=== PATIENT | female | born 1955 | race Caucasian/White ===

== ENCOUNTER → 2017-06-23 | Outpatient (CLI) | payer BC ==
--- NOTE | 2017-06-23 12:25 | ECHOS ---
STRESS ECHOCARDIOGRAM INDICATIONS: Family history/palpitations. MEDICATIONS: Niacin, pravastatin, Xanax, Tramadol. BASELINE HEART RATE: 95 BASELINE BLOOD PRESSURE: 123/61 MAXIMUM HEART RATE: 144 MAXIMUM BLOOD PRESSURE: 199/96 85% MPHR: 134 100% MPHR: 158 METS: 6.0 MAXIMUM STAGE REACHED: 2 TOTAL EXERCISE TIME: 4:15 CLINICAL INFORMATION: Patient referred for a dobutamine stress echo. History of palpitations and a family history of heart disease. Baseline heart rate 95 beats per minute. Baseline blood pressure 123/61 mmHg. Baseline 12-lead ECG showed normal sinus rhythm with normal cardiac intervals. Patient exercised on a Enrrique protocol for 4 minutes 15 seconds achieving a peak heart rate of 144 beats per minute. There was no ECG evidence for ischemia. PVCs and ventricular couplets and ventricular triplets were noted. These PVCs had a left bundle branch block morphology. There was no ECG evidence for ischemia. No sustained VT was noted. Baseline 2D echo images showed normal LV size and systolic function without segmental wall motion abnormalities. At peak exercise, there was excellent augmentation of overall LV contractility without development of any wall motion abnormalities. At recovery regional global LV systolic function remained normal. IMPRESSION: 1. Low average exercise capacity. 2. Normal blood pressure response to exercise. 3. No ECG or echocardiographic evidence for ischemia. 4. PVCs and ventricular couplets noted with exercise. No nonsustained ventricular tachycardia. MMODL / IJN: [id number] /
== END | disposition home or self-care (01) ==
LOC: RADNMMAIN 09:19
PROVIDERS: ATTEND Family Medicine
DX: I49.3 Ventricular premature depolarization (principal); I10 Essential (primary) hypertension; E66.09 Other obesity due to excess calories; Z82.41 Family history of sudden cardiac death
CPT/HCPCS: 93017; 93350

== ENCOUNTER 2017-07-06 11:03 | Day surgery (SDC) | payer BC ==
[2017-07-04 15:14] VITALS: BMI 36.0
[~2017-07-06 11:03] MED LIST: LACTATED RINGERS 1,000 ML IV SCH; LIDOCAINE 1% 20 ML VIAL (10MG/ML) FOR IV START INTRADERMA PRN
[2017-07-06 12:29] VITALS: TEMP 99
[2017-07-06] MEDS ORDERED: PROPOFOL 10 MG/ML 20 ML VIAL IV ONE (12:29)
--- NOTE | 2017-07-06 12:43 | P.PCN ---
Date of Procedure: 07/06/17 Procedure(s) Performed: BRIEF HISTORY: Patient is a 61-year-old pleasant, white female, scheduled for an elective colonoscopy as a part of screening for colorectal neoplasia. PROCEDURE PERFORMED: Colonoscopy with snare polypectomy. PREOPERATIVE DIAGNOSIS: Screening For colon cancer. IV sedation per Anesthesia. PROCEDURE: After informed consent was obtained, the patient, was brought into the endoscopy unit. IV sedation was administered by Anesthesia under continuous monitoring. Digital rectal examination was normal. Initially the Olympus CF- 160 flexible video colonoscope was then inserted in the rectum, gradually advanced into the cecum without any difficulty. Careful examination was performed as the scope was gradually being withdrawn. Ileocecal valve and the appendiceal orifice were visualized and appeared normal. Prep was excellent. Mucosa of the cecum, ascending colon, transverse colon, descending colon, sigmoid colon, and rectum appeared normal. In the proximal rectum there was a 7 -8 mm polyp that was removed by snare polypectomy. Retroflexion was performed in the rectum and no lesions were seen. The sigmoid diverticula seen. The patient tolerated the procedure well. IMPRESSION: 7-8 mm proximal rectal polyp status post polypectomy Scattered sigmoid diverticulosis RECOMMENDATIONS: Findings of this examination were discussed with the patient well as her family. She was advised to follow with the biopsy results. If the biopsy shows a tubular adenoma she can have a repeat colonoscopy in 5 years.
[2017-07-06 12:55] VITALS: RESP 18
[2017-07-06 13:09] VITALS: BP 136/87; PULSE 69
== END 2017-07-06 13:26 | disposition home or self-care (01) ==
LOC: ORWHC2ENDO 11:03
PROVIDERS: ATTEND Internal Medicine Gastroenterology
DX: Z12.11 Encounter for screening for malignant neoplasm of colon (principal); K62.1 Rectal polyp; K57.30 Diverticulosis of large intestine without perforation or abscess without bleeding; K21.9 Gastro-esophageal reflux disease without esophagitis; E78.5 Hyperlipidemia, unspecified; Z79.891 Long term (current) use of opiate analgesic; Z79.899 Other long term (current) drug therapy
CPT/HCPCS: 88305; 45385; J2704

== ENCOUNTER 2018-07-19 19:50 | Observation (INO) | payer BC ==
--- NOTE | 2018-07-19 20:26 | ED ---
Chest Pain HPI - General Chief Complaint: Chest Pain Stated Complaint: Chest Pressure Time Seen by Provider: 07/19/18 19:59 Source: patient, RN notes reviewed, old records reviewed Mode of arrival: ambulatory Limitations: no limitations - History of Present Illness Initial Comments: This is a 61-year-old female the ER for evasive chest pain. Patient is chest pain palpitations and chest pressure left-sided. No significant shortness of breath, she does have history of similar complaints. Patient was sent by family doctor for evaluation regarding chest pain. No prior cardiac evaluation recently. No travel history no sick contacts no fever cough or congestion. Patient's chest pain remains currently, no diaphoresis. MD Complaint: chest pain -: hour(s) Onset: during rest Pain Location: substernal, left chest Pain Radiation: none Severity: moderate Severity scale (1-10): 4 Quality: tightness, heaviness Consistency: constant Improves With: nothing Worsens With: nothing Anginal Symptoms: other (None) Other Symptoms: palpitations Treatments Prior to Arrival: none - Related Data Home Medications Medication Instructions Recorded Confirmed ALPRAZolam [Xanax] 0.5 mg PO DAILY PRN 07/04/17 07/19/18 Diclofenac Potassium [Cataflam] 50 mg PO DAILY PRN 07/04/17 07/19/18 Fish Oil/Dha/Epa [Fish Oil 1,200 1 cap PO DAILY 07/04/17 07/19/18 mg Fish Oil] Multivitamins, Thera [Multivitamin 1 tab PO DAILY 07/04/17 07/19/18 (formulary)] traMADol HCL [Ultram] 50 mg PO DAILY PRN 07/04/17 07/19/18 Atorvastatin [Lipitor] 40 mg PO DAILY 07/19/18 07/19/18 Calcium Carbonate [Calcium] 600 mg PO DAILY 07/19/18 07/19/18 Glucosam/Duane-Msm1/C/Hitesh/Bosw 1 tab PO DAILY 07/19/18 07/19/18 [Glucosamine-Chondroitin Tablet] Vitamin D3(Unknown) 1 tab PO DAILY 07/19/18 07/19/18 buPROPion XL [Wellbutrin Xl] 150 mg PO DAILY 07/19/18 07/19/18 Allergies Allergy/AdvReac Type Severity Reaction Status Date / Time No Known Allergies Allergy Verified 07/19/18 20:24 Review of Systems ROS Statement: Those systems with pertinent positive or pertinent negative responses have been documented in the HPI. ROS Other: All systems not noted in ROS Statement are negative. EKG Findings - EKG Comments: EKG Findings:: EKG shows normal sinus rhythm rate of 90, IL 180, QRS 80, QTC 452 Past Medical History Additional Past Medical History / Comment(s): palpatations occas,chest pain with stress,steroid Apr 2017 History of Any Multi-Drug Resistant Organisms: None Reported Past Surgical History: Joint Replacement Additional Past Surgical History / Comment(s): lap band-fluid present,kayley hips replacements,rt knee replaced Past Anesthesia/Blood Transfusion Reactions: No Reported Reaction Past Psychological History: Depression Smoking Status: Former smoker Past Alcohol Use History: Occasional Past Drug Use History: None Reported - Past Family History Father Family Medical History: Myocardial Infarction ([place]) Additional Family Medical History / Comment(s): at age 44 Mother Family Medical History: Cancer Additional Family Medical History / Comment(s): lung General Exam Limitations: no limitations General appearance: alert, in no apparent distress Head exam: Present: atraumatic, normocephalic, normal inspection Eye exam: Present: normal appearance, PERRL, EOMI. Absent: scleral icterus, conjunctival injection, periorbital swelling ENT exam: Present: normal exam, mucous membranes moist Neck exam: Present: normal inspection. Absent: tenderness, meningismus, lymphadenopathy Respiratory exam: Present: normal lung sounds bilaterally. Absent: respiratory distress, wheezes, rales, rhonchi, stridor Cardiovascular Exam: Present: regular rate, normal rhythm, normal heart sounds. Absent: systolic murmur, diastolic murmur, rubs, gallop, clicks GI/Abdominal exam: Present: soft, normal bowel sounds. Absent: distended, tenderness, guarding, rebound, rigid Extremities exam: Present: normal inspection, full ROM, normal capillary refill. Absent: tenderness, pedal edema, joint swelling, calf tenderness Back exam: Present: normal inspection Neurological exam: Present: alert, oriented X3, CN II-XII intact Psychiatric exam: Present: normal affect, normal mood Skin exam: Present: warm, dry, intact, normal color. Absent: rash Course Vital Signs 07/19/18 07/19/18 19:52 21:52 Temperature 98.2 F Pulse Rate 96 83 Respiratory 18 18 Rate Blood Pressure 158/86 144/84 O2 Sat by Pulse 99 97 Oximetry - Reevaluation(s) Reevaluation #1: 07/19/18 21:57 Medical record reviewed Reevaluation #2: 07/19/18 21:57 Patient with persistent chest pain Chest Pain MDM - [facility] 62 female who presents with chest pain. Persistent chest pain here in the ER CT chest is negative for acute disease. Patient be admitted for surgical troponins and cardiac observation Critical Care Time Critical Care Time: Yes Total Critical Care Time: 31 Disposition Clinical Impression: Chest pain Disposition: ADMITTED IP TO THIS HOSP Condition: Undetermined Instructions (If sedation given, give patient instructions): Chest Pain (ED) Is patient prescribed a controlled substance at d/c from ED?: No Referrals: Madonna Woodard MD [Primary Care Provider] - 1-2 days
[2018-07-19 20:37] LABS: Basophils % (A) 1 %; Eosinophils # (A) 0.1 k/uL (0-0.7); Eosinophils % (A) 2 %; HGB 13.3 gm/dL (11.4-16.0); Lymphocytes # (A) 1.1 k/uL (1.0-4.8); Lymphocytes % (A) 18 %; MCH 32.9 pg (25.0-35.0); MCHC 33.4 g/dL (31.0-37.0); MCV 98.6 fL (80.0-100.0); Mean Platelet Volume 7.3; Monocytes # (A) 0.3 k/uL (0-1.0); Monocytes % (A) 5 %; Neutrophils # (A) 4.5 k/uL (1.3-7.7); Neutrophils % (A) 73 %; Platelet Count 227 k/uL (150-450); RBC 4.06 m/uL (3.80-5.40); WBC 6.2 k/uL (3.8-10.6)
--- NOTE | 2018-07-19 20:44 | XR ---
EXAMINATION: XR chest 2V DATE AND TIME: 07/19/2018 8:37 PM CLINICAL INDICATION: PHH; Chest Pain TECHNIQUE: Departmental protocol COMPARISON: 07/19/2011 FINDINGS: The lungs are clear. The pleural spaces are negative. The cardiac silhouette is not enlarged. The remainder of the mediastinal silhouette is unremarkable. The skeletal structures and soft tissues are negative for acute findings. IMPRESSION: NO ACUTE PROCESS.
[2018-07-19 20:47] LABS: ALT 25 U/L (9-52); AST 22 U/L (14-36); Albumin 4.4 g/dL (3.5-5.0); Alkaline Phosphatase 81 U/L (38-126); Anion Gap 10 mmol/L; Blood Urea Nitrogen 16 mg/dL (7-17); Carbon Dioxide 26 mmol/L (22-30); Chloride 106 mmol/L (98-107); Glucose 87 mg/dL (74-99); Lipase 49 U/L (23-300); Magnesium 1.6 mg/dL (1.6-2.3); Potassium 4.6 mmol/L (3.5-5.1); Sodium 142 mmol/L (137-145); Total Bilirubin 0.8 mg/dL (0.2-1.3); Total Protein 6.6 g/dL (6.3-8.2)
[2018-07-19 20:59] LABS: INR 0.9 (<1.2)
[2018-07-19 21:02] LABS: D-Dimer 1.9 mg/L FEU (<0.60); Partial Thromboplastin Time 21.5 sec (22.0-30.0)
--- NOTE | 2018-07-19 22:21 | CT ---
EXAMINATION TYPE: CT angio chest with contrast and with 3-D reconstruction renderings DATE OF EXAM: 07/19/2018 9:36 PM COMPARISON: 09/03/2011 HISTORY: Chest pressure, elevated d-dimer CT DLP: 481.2 mGycm Automated exposure control for dose reduction was used. CONTRAST: CTA scan of the thorax is performed with IV Contrast, patient injected with 100 mL of Isovu e 370, pulmonary embolism protocol. 3-D renderings. FINDINGS: LUNGS: The lungs are grossly clear, there is no concerning parenchymal mass or nodule identified. Th ere is no pleural effusion or pneumothorax seen. The tracheobronchial tree is patent. MEDIASTINUM: There is satisfactory enhancement of the pulmonary artery and its branches, there is no CT evidence for pulmonary embolism. No acute aortic findings. There are no greater than 1 cm hilar or mediastinal lymph nodes. There is mild cardiomegaly. Coronary calcifications are noted. No pericard ial effusion is seen. 5 cm sliding hiatal hernia noted. OTHER: No additional significant abnormality is seen. IMPRESSION: 1. NO ACUTE PROCESS. 2. CORONARY CALCIFICATIONS AND MILD CARDIOMEGALY. 3. 5 CM SLIDING HIATAL HERNIA.
[2018-07-19] MEDS ORDERED: NITROGLYCERIN SL TABS 0.4 MG TAB SUBLINGUAL PRN (22:35)
[2018-07-19] MEDS ORDERED: HEPARIN SODIUM,PORCINE 5,000 UNIT/ML 1 ML VIAL IV PRN (22:35)
[2018-07-19] MEDS ORDERED: HEPARIN SODIUM,PORCINE 5,000 UNIT/ML 1 ML VIAL IV ONE (22:35)
[2018-07-19] MEDS ORDERED: ASPIRIN 81 MG PO STA (22:35)
[2018-07-19] MEDS: SODIUM CHLORIDE 0.9% 1,000 ML IV SCH (23:07)
[2018-07-19] MEDS: HEPARIN SOD,PORK IN 0.45% NACL 25,000 UNIT in 0.45% NACL 1 250ML.BAG IV SCH (23:09)
[2018-07-20] MEDS: HEPARIN SOD,PORK IN 0.45% NACL 25,000 UNIT in 0.45% NACL 1 250ML.BAG IV SCH (05:48)
[2018-07-20] MEDS ORDERED: HEPARIN SODIUM,PORCINE 5,000 UNIT/ML 1 ML VIAL IV PRN ×2 (05:53→05:56)
[2018-07-20 08:50] LABS: Mean Platelet Volume 7.4; Platelet Count 178 k/uL (150-450)
[2018-07-20] MEDS ORDERED: METOPROLOL TARTRATE 25 MG TAB PO SCH (09:00)
[2018-07-20] MEDS ORDERED: ASPIRIN 325 MG TAB PO SCH (09:00)
[2018-07-20] MEDS: ATORVASTATIN 80 MG TAB PO SCH (09:08)
[2018-07-20 09:27] LABS: Cholesterol 152 mg/dL (<200); HDL Cholesterol 78 mg/dL (40-60); LDL Cholesterol,Calculated 58 mg/dL (0-99); Triglycerides 78 mg/dL (<150)
[2018-07-20] MEDS ORDERED: DOBUTamine DRIP for NUC MED 500 MG in DEXTROSE/WATER 1 250ML.BAG IV ONE (10:00)
[2018-07-20] MEDS ORDERED: traMADol 50 MG TAB PO PRN (10:08)
[2018-07-20] MEDS ORDERED: ALPRAZolam 0.5 MG TAB PO PRN (10:08)
[2018-07-20] MEDS ORDERED: ETODOLAC 200 MG CAPSULE PO PRN (10:08)
[2018-07-20] MEDS ORDERED: ATROPINE SULFATE 0.1 MG/ML 10ML SYRINGE ONE (10:27)
--- NOTE | 2018-07-20 12:16 | P.CRDCN ---
History of Present Illness History of present illness: This is a pleasant 62-year-old female past medical history significant for dyslipidemia, anxiety and gastroesophageal reflux disease. We have been asked to see her in consultation secondary to chest discomfort. She denies history of coronary artery disease, hypertension, diabetes mellitus and does not follow with a customer service and sales consultant for any reason. She is seen and examined resting comfortably on the stretcher in the emergency department. She states for the previous one month which has been experiencing intermittent pressure sensation in the left precordial region. These episodes of discomfort are not related to exertion. She states she does walk on her treadmill at home for approximately 20 minutes a few times a week and she does not experience this discomfort while she is exercising. In general she notices this discomfort at rest while she is sitting up. If she lays down completely flat or starts physically exerting herself the symptom symptoms seemed to subside. As I'm examining her she is having intermittent chest discomfort. There is no radiation to the arm, back, neck or jaw. She denies associated shortness of breath, dizziness, palpitations, nausea, vomiting or diaphoresis. She recently established with a new primary care physician and was changed from pravastatin to atorvastatin. She seems to think the symptoms are associated with this change in medication and occurred at the same time. EKG reveals sinus mechanism with no acute ST or T wave abnormalities noted. Chest x-ray is negative for an acute cardiopulmonary process. Laboratory data reviewed, WBC 6.2, hemoglobin 13.3, platelets 178, d-dimer 1.9, sodium 142, potassium 4.6, creatinine 0.7, magnesium 1.6, cardiac enzymes negative 3, NT proBNP 88, LDL 58, HDL 78. Current cardiac medications include atorvastatin 40 mg daily. Most recent stress test performed in June 2017 with a stress echocardiogram that was negative for stress-induced cardiac ischemia. At the time of my exam: CONSTITUTIONAL: Denies fever. Denies chills. EYES: Denies blurred vision. Denies vision changes. Denies eye pain. EARS, NOSE, MOUTH & THROAT: Denies headache. Denies sore throat. Denies ear pain. CARDIOVASCULAR: Complains of chest pain. Denies shortness of breath. Denies orthopnea. Denies PND. Denies palpitations. RESPIRATORY: Denies cough. GASTROINTESTINAL: Denies abdominal pain. Denies diarrhea. Denies constipation. Denies nausea. Denies vomiting. MUSCULOSKELETAL: Denies myalgias. INTEGUMENTARY: Denies pruitis. Denies rash. NEUROLOGIC: Denies numbness. Denies tingling. Denies weakness. PSYCHIATRIC: Denies anxiety. Denies depression. ENDOCRINE: Denies fatigue. Denies weight change. Denies polydipsia. Denies polyurina. GENITOURINARY: Denies burning, hematuria or urgency with micturation. HEMATOLOGIC: Denies history of anemia. Denies bleeding. Blood pressure 135/87 heart rate 82 afebrile maintaining oxygen saturation on room air GENERAL: This is a 62-year-old female in no apparent distress at the time of my examination. Obese. HEENT: Head is atraumatic, normocephalic. Pupils are equal, round. Sclerae anicteric. Conjunctivae are clear. Mucous membranes of the mouth are moist. Neck is supple. There is no jugular venous distention. No carotid bruit is heard. LUNGS: Clear to auscultation no wheezes, rales or rhonchi. No chest wall tenderness is noted on palpation or with deep breathing. HEART: Regular rate and rhythm without murmurs, rubs or gallops. S1 and S2 heard. ABDOMEN: Soft, nontender. Bowel sounds are heard. No organomegaly noted. EXTREMITIES: No evidence of peripheral edema and no calf tenderness noted. VASCULAR: Radial and dorsalis pedis pulses palpated, no evidence of clubbing. NEUROLOGIC: Patient is awake, alert and oriented x3. ASSESSMENT Chest pain, atypical for angina. An acute coronary event has been ruled out. Dyslipidemia Gastroesophageal reflux disease Obesity, BMI 34 PLAN Acute coronary event has been ruled out. Obtain 2-D echocardiogram and Doppler study to assess cardiac structure and function. Perform stress echocardiogram to assess for stress-induced cardiac ischemia. Initiate the patient on Protonix and assess for resolution of chest discomfort. If stress test is normal she is stable from a cardiac perspective. Symptoms may be related to gastroesophageal reflux disease. Thank you kindly for this consultation. Nurse Practitioner note has been reviewed, I agree with a documented findings and plan of care. Patient was seen and examined. Past Medical History Past Medical History: Chest Pain / Angina, GERD/Reflux, Osteoarthritis (OA), Pneumonia Additional Past Medical History / Comment(s): Palpatations, occassiobal chest pain with stress History of Any Multi-Drug Resistant Organisms: None Reported Past Surgical History: Breast Surgery, Joint Replacement, Tonsillectomy Additional Past Surgical History / Comment(s): lap band-fluid filled ,kayley hips replacements, rt knee replaced, L breast benign biopsy, colonoscopy/benign polypectomy. Past Anesthesia/Blood Transfusion Reactions: No Reported Reaction Smoking Status: Former smoker - Past Family History Father Family Medical History: Myocardial Infarction ([place]) Additional Family Medical History / Comment(s): from [place] at age 44 Mother Family Medical History: Cancer Additional Family Medical History / Comment(s): Mother of lung cancer at the age of 70yrs. Medications and Allergies Home Medications Medication Instructions Recorded Confirmed Type ALPRAZolam [Xanax] 0.5 mg PO DAILY PRN 07/04/17 07/19/18 History Diclofenac Potassium [Cataflam] 50 mg PO DAILY PRN 07/04/17 07/19/18 History Fish Oil/Dha/Epa [Fish Oil 1,200 1 cap PO DAILY 07/04/17 07/19/18 History mg Fish Oil] Multivitamins, Thera [Multivitamin 1 tab PO DAILY 07/04/17 07/19/18 History (formulary)] traMADol HCL [Ultram] 50 mg PO DAILY PRN 07/04/17 07/19/18 History Atorvastatin [Lipitor] 40 mg PO DAILY 07/19/18 07/19/18 History Calcium Carbonate [Calcium] 600 mg PO DAILY 07/19/18 07/19/18 History Glucosam/Duane-Msm1/C/Hitesh/Bosw 1 tab PO DAILY 07/19/18 07/19/18 History [Glucosamine-Chondroitin Tablet] Vitamin D3(Unknown) 1 tab PO DAILY 07/19/18 07/19/18 History buPROPion XL [Wellbutrin Xl] 150 mg PO DAILY 07/19/18 07/19/18 History Allergies Allergy/AdvReac Type Severity Reaction Status Date / Time No Known Allergies Allergy Verified 07/19/18 20:24 Physical Exam Vitals: Vital Signs Temp Pulse Pulse Resp BP BP Pulse Ox 07/20/18 11:02 97.4 F L 82 18 135/87 98 07/20/18 10:53 97.7 F 73 18 121/81 97 07/20/18 06:00 68 16 120/82 100 07/20/18 04:00 60 18 121/76 100 07/20/18 01:00 77 18 142/80 98 07/19/18 23:10 97.8 F 83 18 140/93 98 07/19/18 21:52 83 18 144/84 97 07/19/18 19:52 98.2 F 96 18 158/86 99 Intake and Output 07/19/18 07/20/18 07/20/18 22:59 06:59 14:59 Intake Total 66.5 Balance 66.5 Intake: Intake, IV Titration 66.5 Amount Heparin Sod,Pork in 0.45% 66.5 NaCl 25,000 unit In 0.45 % NaCl 1 250ml.bag @ 10 mls/hr IV .Q24H [facility] Rx#: [id number] Other: Voiding Method Toilet Weight 99.79 kg 99.79 kg Results 07/20/18 08:02 07/19/18 20:16 Cardiac Enzymes 07/19/18 07/19/18 07/20/18 Range/Units 20:16 20:16 02:08 AST 22 (14-36) U/L Troponin I <0.012 <0.012 (0.000-0.034) ng/mL 07/20/18 Range/Units 08:02 AST (14-36) U/L Troponin I <0.012 (0.000-0.034) ng/mL Coagulation 07/19/18 07/20/18 Range/Units 20:16 02:08 PT 10.0 (9.0-12.0) sec APTT 21.5 L 27.7 (22.0-30.0) sec Lipids 07/20/18 Range/Units 08:02 Triglycerides 78 (<150) mg/dL Cholesterol 152 (<200) mg/dL HDL Cholesterol 78 H (40-60) mg/dL CBC 07/19/18 07/20/18 Range/Units 20:16 08:02 WBC 6.2 (3.8-10.6) k/uL RBC 4.06 (3.80-5.40) m/uL Hgb 13.3 (11.4-16.0) gm/dL Hct 40.0 (34.0-46.0) % Plt Count 227 178 (150-450) k/uL Comprehensive Metabolic Panel 07/19/18 Range/Units 20:16 Sodium 142 (137-145) mmol/L Potassium 4.6 (3.5-5.1) mmol/L Chloride 106 (98-107) mmol/L Carbon Dioxide 26 (22-30) mmol/L BUN 16 (7-17) mg/dL Creatinine 0.70 (0.52-1.04) mg/dL Glucose 87 (74-99) mg/dL Calcium 10.0 (8.4-10.2) mg/dL AST 22 (14-36) U/L ALT 25 (9-52) U/L Alkaline Phosphatase 81 (38-126) U/L Total Protein 6.6 (6.3-8.2) g/dL Albumin 4.4 (3.5-5.0) g/dL Current Medications Generic Name Dose Route Start Last Admin Trade Name Freq PRN Reason Stop Dose Admin Alprazolam 0.5 mg 07/20/18 10:08 Xanax PO DAILY PRN Anxiety Aspirin 325 mg 07/20/18 09:00 07/20/18 09:09 Aspirin PO 325 mg DAILY NIRANJAN Administration Atorvastatin Calcium 80 mg 07/20/18 09:00 07/20/18 09:08 Lipitor PO 80 mg DAILY NIRANJAN Administration Bupropion HCl 150 mg 07/21/18 09:00 Wellbutrin Xl PO DAILY [facility] Calcium Carbonate/Glycine 500 mg 07/21/18 09:00 Tums PO DAILY [facility] Etodolac 200 mg 07/20/18 10:08 Lodine PO DAILY PRN MODERATE Pain Heparin Sodium (Porcine) 4,989 unit 07/20/18 05:56 07/20/18 05:56 Heparin IV 4,989 unit ONCE PRN Administration Low PTT Protocol Sodium Chloride 1,000 mls @ 20 mls/hr 07/19/18 22:45 07/19/18 23:07 Saline 0.9% IV 20 mls/hr .Q24H NIRANJAN Administration Dobutamine HCl/Dextrose 500 mg 250 mls @ 29.937 mls/hr 07/20/18 10:00 / IV Solution IV 07/20/18 18:21 .Q8H22M ONE Protocol 10 MCG/KG/MIN Multivitamins 1 each 07/21/18 12:00 Theragran PO DAILY@1200 [facility] Nitroglycerin 0.4 mg 07/19/18 22:35 Nitrostat SUBLINGUAL Q5M PRN Chest Pain Tramadol HCl 50 mg 07/20/18 10:08 Ultram PO DAILY PRN MILD Pain Intake and Output 07/19/18 07/20/18 07/20/18 22:59 06:59 14:59 Intake Total 66.5 Balance 66.5 Intake: Intake, IV Titration 66.5 Amount Heparin Sod,Pork in 0.45% 66.5 NaCl 25,000 unit In 0.45 % NaCl 1 250ml.bag @ 10 mls/hr IV .Q24H [facility] Rx#: [id number] Other: Voiding Method Toilet Weight 99.79 kg 99.79 kg Patient Weight 07/21/18 06:59 Weight 99.79 kg 07/20/18 08:02 07/19/18 20:16
[2018-07-20] MEDS: PANTOPRAZOLE 40 MG TABLET PO SCH ×2 (14:18→17:15)
[2018-07-20] MEDS ORDERED: HYDROcodone/APAP 5-325MG 1 EACH TAB PO PRN (16:31)
[2018-07-20] MEDS ORDERED: TEMAZEPAM 15 MG CAP PO PRN (16:31)
--- NOTE | 2018-07-20 20:13 | HP ---
HISTORY AND PHYSICAL DATE OF SERVICE: 07/20/2018 CHIEF COMPLAINT: Chest pain. HISTORY OF PRESENT ILLNESS: This 62-year-old woman with a past medical history of multiple medical problems including GERD, history of DJD, history of pneumonia, palpitations, being followed by Dr. Woodard in the outpatient setting was complaining of chest pains. The patient has noted chest pains which is situated in the left lateral chest which is on and off even happening occurring at rest where the patient felt the discomfort, the pain is more of a discomfort rather than a sharp pain. The patient also had cough for the last 2 weeks and the patient came to [facility] and was admitted for further evaluation and treatment. The patient also complaining of significant stress at home also. There is no history of fever, rigors or chills. No history of headache, loss of consciousness or seizures. PAST MEDICAL HISTORY: Chest pain, history of GERD, DJD, history of pneumonia, palpitations. MEDICATIONS: Home medications are: 1. Ultram 50 mg daily p.r.n. 2. Wellbutrin XL 150 mg daily. 3. Vitamin D3 1 tablet p.o. daily. 4. Multivitamins one p.o. daily. 5. Glucosamine 1 tablet p.o. daily. 6. Fish oil 1 p.o. daily. 7. Cataflam 50 mg daily p.r.n. 8. Calcium 600 mg p.o. daily. 9. Lipitor 40 mg daily. 10.Xanax 0.5 daily p.r.n. ALLERGIES: None. FAMILY HISTORY: History of myocardial infarction in the family. SOCIAL HISTORY: History of alcohol, previous history of smoking. REVIEW OF SYSTEMS: ENT: No diminished hearing or diminished vision. CARDIOVASCULAR: As mentioned earlier. RESPIRATORY: As mentioned earlier. GI no nausea or vomiting. no dysuria. NERVOUS SYSTEM: No numbness or weakness. ALLERGY/IMMUNOLOGY: No asthma or hayfever. MUSCULOSKELETAL: As mentioned earlier. HEMATOLOGY/ONCOLOGY: No history of anemia. ENDOCRINE: No history of diabetes or hypothyroidism. CONSTITUTIONAL: As mentioned earlier. DERMATOLOGY: Negative. RHEUMATOLOGY negative. PSYCHIATRIC: As mentioned earlier. PHYSICAL EXAMINATION: GENERAL: Alert and oriented x3. VITAL SIGNS: Pulse 73, blood pressure 131/82, respiration 18, temperature 98.2, pulse ox 98% on room air. HEENT is conjunctivae normal. Oral mucosa moist. NECK: No jugular venous distention. No carotid bruit. No lymph node enlargement. CARDIOVASCULAR: S1-S2 muffled. RESPIRATORY: Breath sounds diminished in the bases. No rhonchi. No crackles. ABDOMEN: Soft, nontender. No mass palpable. LEGS: No edema. No swelling. NERVOUS SYSTEM: Higher functions as mentioned earlier. Moves all four extremities. No focal deficits. Lymphatics: No lymph nodes palpable in the neck, axillae or groin. SKIN: No ulcer, no rash and no bleeding. JOINTS: No active deforming arthropathy. LABS: CBC within normal limits. D-dimer is 1.9. ASSESSMENT: 1. Chest pain possible unstable angina. Rule out coronary artery disease. 2. Gastroesophageal reflux disease. 3. Degenerative joint disease. 4. History of pneumonia. 5. History of palpitations. 6. History of lap band. 7. History of degenerative joint disease. 8. History of anxiety, depression. 9. 5 cm sliding hiatal hernia. 10.Coronary calcification, mild cardiomegaly in the the CT angiogram. RECOMMENDATIONS AND DISCUSSION: In this 62-year-old woman who presented with multiple complex medical issues, we will monitor the patient closely, myocardial infarction ruled out. Cardiology is recommending a stress test. We will continue to monitor. I would also recommend a 2D echo and continue to monitor. Resume the home medications. Proton pump inhibitors. Prognosis guarded because of multiple complex medical issues. Further recommendations to follow. A copy of dictation is being forwarded to Dr. Woodard, who is the primary physician. MMODL / IJN: [id number] /
[2018-07-20] MEDS: buPROPion XL 150 MG TAB.ER.24H PO SCH (21:00)
[2018-07-21] MEDS: SODIUM CHLORIDE 0.9% 1,000 ML IV SCH (02:04)
[2018-07-21 06:36] LABS: Basophils % (A) 1 %; Eosinophils # (A) 0.1 k/uL (0-0.7); Eosinophils % (A) 3 %; HCT 41.7 % (34.0-46.0); HGB 13.8 gm/dL (11.4-16.0); Lymphocytes # (A) 1.3 k/uL (1.0-4.8); Lymphocytes % (A) 25 %; MCH 33.2 pg (25.0-35.0); MCHC 33.2 g/dL (31.0-37.0); MCV 99.9 fL (80.0-100.0); Mean Platelet Volume 7.4; Monocytes # (A) 0.4 k/uL (0-1.0); Monocytes % (A) 7 %; Neutrophils # (A) 3.1 k/uL (1.3-7.7); Neutrophils % (A) 61 %; Platelet Count 218 k/uL (150-450); RBC 4.17 m/uL (3.80-5.40); RDW 12.9 % (11.5-15.5)
[2018-07-21 06:54] LABS: Anion Gap 11 mmol/L; Blood Urea Nitrogen 12 mg/dL (7-17); Calcium 9.5 mg/dL (8.4-10.2); Carbon Dioxide 23 mmol/L (22-30); Chloride 106 mmol/L (98-107); Glucose 109 mg/dL (74-99); Potassium 3.8 mmol/L (3.5-5.1); Sodium 140 mmol/L (137-145)
[2018-07-21] MEDS: PANTOPRAZOLE 40 MG TABLET PO SCH (08:19)
[2018-07-21] MEDS: buPROPion XL 150 MG TAB.ER.24H PO SCH (08:19)
[2018-07-21] MEDS ORDERED: VITAMIN D3 PO SCH (09:00)
[2018-07-21] MEDS ORDERED: CALCIUM CARBONATE 500 MG CHEWABLE PO SCH (09:00)
[2018-07-21] MEDS ORDERED: NON-FORMULARY DRUG (Glucosam/Chon-Msm1/C/Mang/Bosw [Glucosamine-Chondroitin Tablet] 1 TAB) PO SCH (09:00)
[2018-07-21] MEDS ORDERED: NON-FORMULARY DRUG (Fish Oil/Dha/Epa [Fish Oil 1,200 Mg Fish Oil] 1 CAP) PO SCH (09:00)
[2018-07-21] MEDS ORDERED: buPROPion XL 150 MG TAB.ER.24H PO SCH (09:00)
--- NOTE | 2018-07-21 11:06 | EST ---
EXERCISE STRESS INDICATIONS: Chest pain. BASELINE HEART RATE: 73 BASELINE BLOOD PRESSURE: 103/46 MAXIMUM HEART RATE: 132 MAXIMUM BLOOD PRESSURE: 151/62 85% MPHR: 133 100% MPHR: 157 MAXIMUM STAGE REACHED: 4 TOTAL EXERCISE TIME: 14:15 CLINICAL INFORMATION: A 62-year-old female who has chest pain. A dobutamine stress echo was ordered. Baseline heart rate is 73 beats per minute. Baseline blood pressure 103/46 mmHg. Baseline 12-lead ECG shows normal sinus rhythm with normal cardiac intervals. The patient received dobutamine infusion per protocol. PVCs, sometimes in a bigeminal pattern were noted, no nonsustained ventricular tachycardia. There was no ECG evidence for ischemia. No nonsustained arrhythmias noted. Baseline 2D echo shows normal LV size and systolic function without segmental wall motion abnormalities. With dobutamine, there was a stepwise augmentation of overall LV contractility without developing any wall motion abnormalities. At recovery, regional global LV systolic function remained normal. IMPRESSION: No ECG or echocardiographic evidence for ischemia. MMODL / IJN: [id number] /
[2018-07-21] MEDS ORDERED: MULTIVITAMINS, THERA 1 EACH TAB PO SCH (12:00)
[2018-07-21 12:26] VITALS: BP 114/75; PULSE 67; RESP 18; TEMP 98.3
== END 2018-07-21 15:06 | disposition home or self-care (01) ==
LOC: EC 19:50 → 1SOBS 22:35
PROVIDERS: ADMIT Hospitalist; ATTEND Hospitalist
DX: R07.89 Other chest pain (principal); E66.9 Obesity, unspecified; Z68.34 Body mass index [BMI] 34.0-34.9, adult; E78.5 Hyperlipidemia, unspecified; I25.10 Atherosclerotic heart disease of native coronary artery without angina pectoris; K21.9 Gastro-esophageal reflux disease without esophagitis; K44.9 Diaphragmatic hernia without obstruction or gangrene; F32.9 Major depressive disorder, single episode, unspecified; F41.9 Anxiety disorder, unspecified; M19.90 Unspecified osteoarthritis, unspecified site; Z98.84 Bariatric surgery status; Z87.891 Personal history of nicotine dependence; Z87.01 Personal history of pneumonia (recurrent); Z79.899 Other long term (current) drug therapy; Z80.1 Family history of malignant neoplasm of trachea, bronchus and lung; Z82.49 Family history of ischemic heart disease and other diseases of the circulatory system
CPT/HCPCS: 96376; 96365; 96366; 99291; 36415; 93005; 93306; 93351; 85379; 83880; 80061; 80053; 80048; 83690; 83735; 84484 ×2; 85025 ×2; 85049; 85610; 85730 ×2; 71046; 71275; G0378 ×3; J1250; J1644 ×4; Q9967

== ENCOUNTER → 2018-08-08 | Outpatient (CLI) | payer BC ==
--- NOTE | 2018-08-08 17:14 | XR ---
Right wrist HISTORY: Chronic pain 3 views of the right wrist Comminuted displaced ulnar styloid fracture is present. Arthropathy noted at the carpometacarpal and metacarpophalangeal joint of the first digit. There is widening of the scapholunate distance. No evid ent dislocation. 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 Chron ic fracture of the ulnar styloid is suspected. Wrist MRI likely of benefit.
== END ==
LOC: RADXRYALE 16:05
PROVIDERS: ATTEND Internal Medicine
DX: M25.531 Pain in right wrist (principal)

== ENCOUNTER → 2020-11-11 | Outpatient (CLI) | payer BC ==
--- NOTE | 2020-11-11 13:04 | US ---
EXAMINATION TYPE: US abdomen complete DATE OF EXAM: 11/11/2020 COMPARISON: NONE CLINICAL HISTORY: R10.9 abdominal pain. Gastric pain and belching per patient; lab band surgery years ago EXAM MEASUREMENTS: Liver Length: 18.7 cm Gallbladder Wall: 0.2 cm CBD: 0.4 cm Spleen: 11.0 cm Right Kidney: 9.5 x 6.5 x 5.1 cm Left Kidney: 9.9 x 5.6 x 5.5 cm Pancreas: hyperechoic Liver: small left lobe is noted; mildly heterogeneous liver Gallbladder: wnl Evidence for sonographic Chandler's sign: no CBD: wnl Spleen: wnl Right Kidney: No hydronephrosis or masses seen Left Kidney: No hydronephrosis or masses seen Upper IVC: wnl Abd Aorta: size is wnl IMPRESSION: 1. Liver mildly heterogeneous correlate for hepatic steatosis, or hepatocellular disease such as hepa titis.
== END | disposition home or self-care (01) ==
LOC: RADUSWWP 12:15
PROVIDERS: ATTEND Internal Medicine
DX: R10.9 Unspecified abdominal pain (principal)
CPT/HCPCS: 76700

== ENCOUNTER 2021-01-16 12:57 | Inpatient (IN) | payer BC, MEDICARE ==
[2021-01-16] MEDS ORDERED: NITROGLYCERIN OINT 1 INCH/GM PACKET TOPICAL STA (14:21)
[2021-01-16] MEDS ORDERED: ASPIRIN 81 MG PO STA (14:21)
--- NOTE | 2021-01-16 14:27 | ED ---
General Adult HPI - General Chief complaint: Chest Pain Stated complaint: Chest pain Time Seen by Provider: 01/16/21 14:10 Source: patient, RN notes reviewed Mode of arrival: ambulatory Limitations: no limitations - History of Present Illness Initial comments: Patient is a pleasant 65-year-old female presenting to the emergency Department with complaints of chest discomfort. Onset of symptoms was 3 days ago. Symptoms have slowly progressively worsened. Discomfort is currently 4/10. Discomfort feels like an ache or pressure on the left side. Patient does have some mild occasional dyspnea. Dyspnea might be somewhat worse with exertion. No associated nausea or diaphoresis. There was some left arm tingling yesterday. - Related Data Home Medications Medication Instructions Recorded Confirmed ALPRAZolam [Xanax] 0.5 mg PO DAILY PRN 07/04/17 01/16/21 Diclofenac Potassium [Cataflam] 50 mg PO DAILY PRN 07/04/17 01/16/21 traMADol HCL [Ultram] 50 mg PO DAILY PRN 07/04/17 01/16/21 Calcium Carbonate [Calcium] 600 mg PO DAILY 07/19/18 01/16/21 buPROPion XL [Wellbutrin XL] 150 mg PO DAILY 07/19/18 01/16/21 Atorvastatin Calcium [Lipitor] 40 mg PO DAILY 01/16/21 01/16/21 Cholecalciferol [Vitamin D3 (25 25 mcg PO DAILY 01/16/21 01/16/21 Mcg = 1000 Iu)] Krill Oil 500 mg PO DAILY 01/16/21 01/16/21 Omeprazole [PriLOSEC] 20 mg PO DAILY 01/16/21 01/16/21 Allergies Allergy/AdvReac Type Severity Reaction Status Date / Time No Known Allergies Allergy Verified 01/16/21 15:38 Review of Systems ROS Statement: Those systems with pertinent positive or pertinent negative responses have been documented in the HPI. ROS Other: All systems not noted in ROS Statement are negative. Constitutional: Denies: fever Eyes: Denies: eye pain ENT: Denies: ear pain Respiratory: Reports: as per HPI. Denies: cough Cardiovascular: Reports: as per HPI, chest pain Endocrine: Denies: fatigue Gastrointestinal: Denies: abdominal pain Genitourinary: Denies: dysuria Musculoskeletal: Denies: back pain Skin: Denies: rash Neurological: Denies: weakness Past Medical History Past Medical History: Chest Pain / Angina, GERD/Reflux, Osteoarthritis (OA), Pneumonia Additional Past Medical History / Comment(s): Palpatations, occassiobal chest pain with stress History of Any Multi-Drug Resistant Organisms: None Reported Past Surgical History: Breast Surgery, Joint Replacement, Tonsillectomy Additional Past Surgical History / Comment(s): lap band-fluid filled ,kayley hips replacements, rt knee replaced, L breast benign biopsy, colonoscopy/benign polypectomy. Past Anesthesia/Blood Transfusion Reactions: No Reported Reaction Past Psychological History: Anxiety, Depression Smoking Status: Never smoker Past Alcohol Use History: Occasional Past Drug Use History: None Reported - Past Family History Father Family Medical History: Myocardial Infarction ([place]) Additional Family Medical History / Comment(s): from [place] at age 44 Mother Family Medical History: Cancer Additional Family Medical History / Comment(s): Mother of lung cancer at the age of 70yrs. General Exam Limitations: no limitations General appearance: alert, in no apparent distress Head exam: Present: normocephalic Eye exam: Present: normal appearance Neck exam: Present: normal inspection Respiratory exam: Present: normal lung sounds bilaterally. Absent: chest wall tenderness Cardiovascular Exam: Present: regular rate, normal rhythm, normal heart sounds Expanded Peripheral pulses: 2+: Radial (R), Radial (L), Posterior Tibialis (R), Posterior Tibialis (L) GI/Abdominal exam: Present: soft. Absent: tenderness Extremities exam: Present: normal inspection. Absent: pedal edema, calf tenderness Neurological exam: Present: alert Psychiatric exam: Present: normal affect, normal mood Skin exam: Present: normal color Course Vital Signs 01/16/21 01/16/21 01/16/21 13:41 15:44 16:42 Pulse Rate 70 73 67 Respiratory 18 18 18 Rate Blood Pressure 142/84 145/92 O2 Sat by Pulse 97 96 96 Oximetry EKG Findings - EKG Comments: EKG Findings:: Sinus rhythm with a rate of 64. AR 198. QRS 86. QT 424. QTC 437. Normal axis. Poor R-wave progression. No acute ST change. PVC present. Medical Decision Making - Medical Decision Making Patient reevaluated and resting comfortably in bed. Patient is feeling better. Patient updated on results and plan. Case discussed with Dr. Quinteros, who will admit For Dr. Woodard. Patient states Dr. Foster did place a lap band on her previously and he'll be consult to evaluate. - Lab Data Result diagrams: 01/16/21 14:55 01/16/21 14:55 Lab Results 01/16/21 01/16/21 01/16/21 Range/Units 14:55 14:55 14:55 WBC 3.5 L (3.8-10.6) k/uL RBC 4.21 (3.80-5.40) m/uL Hgb 13.4 (11.4-16.0) gm/dL Hct 41.4 (34.0-46.0) % MCV 98.3 (80.0-100.0) fL MCH 31.8 (25.0-35.0) pg MCHC 32.4 (31.0-37.0) g/dL RDW 12.9 (11.5-15.5) % Plt Count 169 (150-450) k/uL MPV 7.7 Neutrophils % 62 % Lymphocytes % 27 % Monocytes % 6 % Eosinophils % 3 % Basophils % 1 % Neutrophils # 2.2 (1.3-7.7) k/uL Lymphocytes # 0.9 L (1.0-4.8) k/uL Monocytes # 0.2 (0-1.0) k/uL Eosinophils # 0.1 (0-0.7) k/uL Basophils # 0.0 (0-0.2) k/uL PT 10.4 (9.0-12.0) sec INR 1.0 (<1.2) APTT 20.0 L (22.0-30.0) sec D-Dimer 2.55 H (<0.60) mg/L FEU Sodium 136 L (137-145) mmol/L Potassium 5.0 (3.5-5.1) mmol/L Chloride 105 (98-107) mmol/L Carbon Dioxide 20 L (22-30) mmol/L Anion Gap 11 mmol/L BUN 16 (7-17) mg/dL Creatinine 0.66 (0.52-1.04) mg/dL Est GFR (CKD-EPI)AfAm >90 (>60 ml/min/1.73 sqM) Est GFR (CKD-EPI)NonAf >90 (>60 ml/min/1.73 sqM) Glucose 78 (74-99) mg/dL Calcium 9.2 (8.4-10.2) mg/dL Magnesium 2.1 (1.6-2.3) mg/dL Total Bilirubin 0.8 (0.2-1.3) mg/dL AST 34 (14-36) U/L ALT 17 (4-34) U/L Alkaline Phosphatase 65 (38-126) U/L Troponin I (0.000-0.034) ng/mL NT-Pro-B Natriuret Pep pg/mL Total Protein 6.9 (6.3-8.2) g/dL Albumin 4.3 (3.5-5.0) g/dL 01/16/21 01/16/21 Range/Units 14:55 14:55 WBC (3.8-10.6) k/uL RBC (3.80-5.40) m/uL Hgb (11.4-16.0) gm/dL Hct (34.0-46.0) % MCV (80.0-100.0) fL MCH (25.0-35.0) pg MCHC (31.0-37.0) g/dL RDW (11.5-15.5) % Plt Count (150-450) k/uL MPV Neutrophils % % Lymphocytes % % Monocytes % % Eosinophils % % Basophils % % Neutrophils # (1.3-7.7) k/uL Lymphocytes # (1.0-4.8) k/uL Monocytes # (0-1.0) k/uL Eosinophils # (0-0.7) k/uL Basophils # (0-0.2) k/uL PT (9.0-12.0) sec INR (<1.2) APTT (22.0-30.0) sec D-Dimer (<0.60) mg/L FEU Sodium (137-145) mmol/L Potassium (3.5-5.1) mmol/L Chloride (98-107) mmol/L Carbon Dioxide (22-30) mmol/L Anion Gap mmol/L BUN (7-17) mg/dL Creatinine (0.52-1.04) mg/dL Est GFR (CKD-EPI)AfAm (>60 ml/min/1.73 sqM) Est GFR (CKD-EPI)NonAf (>60 ml/min/1.73 sqM) Glucose (74-99) mg/dL Calcium (8.4-10.2) mg/dL Magnesium (1.6-2.3) mg/dL Total Bilirubin (0.2-1.3) mg/dL AST (14-36) U/L ALT (4-34) U/L Alkaline Phosphatase (38-126) U/L Troponin I <0.012 (0.000-0.034) ng/mL NT-Pro-B Natriuret Pep 52 pg/mL Total Protein (6.3-8.2) g/dL Albumin (3.5-5.0) g/dL - Radiology Data Radiology results: report reviewed (CT angiogram of the chest shows no pulmonary embolism. Dilated fluid-filled esophagus.), image reviewed (Two-view chest x- ray shows no acute process) Disposition Clinical Impression: Chest pain Disposition: ADMITTED IP TO THIS HOSP Is patient prescribed a controlled substance at d/c from ED?: No Referrals: Madonna Woodard MD [Primary Care Provider] - 1-2 days Decision Time: 17:38
[2021-01-16 15:06] LABS: Basophils % (A) 1 %; Eosinophils # (A) 0.1 k/uL (0-0.7); Eosinophils % (A) 3 %; HCT 41.4 % (34.0-46.0); HGB 13.4 gm/dL (11.4-16.0); Lymphocytes # (A) 0.9 k/uL (1.0-4.8); Lymphocytes % (A) 27 %; MCH 31.8 pg (25.0-35.0); MCHC 32.4 g/dL (31.0-37.0); MCV 98.3 fL (80.0-100.0); Mean Platelet Volume 7.7; Monocytes # (A) 0.2 k/uL (0-1.0); Monocytes % (A) 6 %; Neutrophils # (A) 2.2 k/uL (1.3-7.7); Neutrophils % (A) 62 %; Platelet Count 169 k/uL (150-450); RBC 4.21 m/uL (3.80-5.40); RDW 12.9 % (11.5-15.5); WBC 3.5 k/uL (3.8-10.6)
[2021-01-16 15:17] LABS: ALT 17 U/L (4-34); AST 34 U/L (14-36); African American GFR (CKD) >90 (>60 ml/min/1.73 sqM); Albumin 4.3 g/dL (3.5-5.0); Alkaline Phosphatase 65 U/L (38-126); Anion Gap 11 mmol/L; Blood Urea Nitrogen 16 mg/dL (7-17); Calcium 9.2 mg/dL (8.4-10.2); Carbon Dioxide 20 mmol/L (22-30); Chloride 105 mmol/L (98-107); Glucose 78 mg/dL (74-99); Magnesium 2.1 mg/dL (1.6-2.3); Non-African American GFR(CKD) >90 (>60 ml/min/1.73 sqM); Sodium 136 mmol/L (137-145); Total Bilirubin 0.8 mg/dL (0.2-1.3); Total Protein 6.9 g/dL (6.3-8.2)
--- NOTE | 2021-01-16 15:28 | XR ---
EXAMINATION TYPE: XR chest 2V DATE OF EXAM: 01/16/2021 COMPARISON: 07/19/2018 INDICATION: Chest pain left side x3 days TECHNIQUE: Frontal and lateral views of the chest are obtained. FINDINGS: The heart size is normal. The pulmonary vasculature is normal. The lungs are clear. There is some mild hyperinflation present IMPRESSION: 1. No acute pulmonary process.
[2021-01-16 15:36] LABS: Prothrombin Time 10.4 sec (9.0-12.0)
--- NOTE | 2021-01-16 17:07 | CT ---
EXAMINATION TYPE: CT angio chest DATE OF EXAM: 01/16/2021 COMPARISON: 07/19/2018 HISTORY: Shortness of breath and Left sided chest discomfort. CT DLP: 432.8 mGycm Automated exposure control for dose reduction was used. CONTRAST: Performed with IV Contrast, patient injected with 100 mL of Isovue 370. There are 3-D post processed images. The lungs are clear of consolidation. There is no evidence of a pulmonary mass. There is no pleural e ffusion. There is dilated thoracic esophagus with fluid levels. There is a sleeve at the gastroesopha geal junction. There is no mediastinal adenopathy. There are no hilar masses. There is normal contrast opacification of the pulmonary arteries. There are no filling defects. Thoracic aorta is intact. There is no aneur ysm or dissection. There is some degenerative spurring in the thoracic spine. There is no compression fracture. Sternum is intact. The ribs appear intact. IMPRESSION: No evidence of pulmonary embolism. No evidence of any significant lung disease. 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
[2021-01-16] MEDS ORDERED: NITROGLYCERIN SL TABS 0.4 MG TAB SUBLINGUAL PRN (17:38)
[2021-01-16] MEDS: NITROGLYCERIN OINT 1 INCH/GM PACKET TOPICAL SCH ×2 (18:41→22:02)
[2021-01-16] MEDS: ACETAMINOPHEN TAB 325 MG TAB PO PRN (20:19)
[2021-01-16] MEDS: SODIUM CHLORIDE 0.9% 1,000 ML IV SCH (20:21)
[2021-01-16] MEDS ORDERED: ALPRAZolam 0.5 MG TAB PO STA (20:27)
[2021-01-17] MEDS ORDERED: HEPARIN SODIUM 1,000 UN/ML (10ML VL) IV PRN (02:40)
[2021-01-17] MEDS ORDERED: HEPARIN SODIUM 1,000 UN/ML (10ML VL) IV ONE (02:40)
[2021-01-17] MEDS ORDERED: DILTIAZEM DRIP BOLUS FROM BAG 1 MG SOLN IV ONE (02:41)
[2021-01-17] MEDS ORDERED: DILTIAZEM 125 MG in SODIUM CHLORIDE 0.9% 100 ML IV SCH (03:00)
[2021-01-17] MEDS ORDERED: HEPARIN SOD,PORK IN 0.45% NACL 25,000 UNIT in 0.45% NACL 1 250ML.BAG IV SCH (03:00)
[2021-01-17] MEDS: ACETAMINOPHEN TAB 325 MG TAB PO PRN (03:27)
[2021-01-17] MEDS: SODIUM CHLORIDE 0.9% 1,000 ML IV SCH ×3 (03:46→23:57)
[2021-01-17 04:04] LABS: Basophils % (A) 1 %; Eosinophils # (A) 0.1 k/uL (0-0.7); Eosinophils % (A) 2 %; HCT 41.2 % (34.0-46.0); HGB 13.3 gm/dL (11.4-16.0); Lymphocytes # (A) 1.2 k/uL (1.0-4.8); Lymphocytes % (A) 33 %; MCH 32.2 pg (25.0-35.0); MCHC 32.4 g/dL (31.0-37.0); MCV 99.4 fL (80.0-100.0); Mean Platelet Volume 8.5; Monocytes # (A) 0.3 k/uL (0-1.0); Monocytes % (A) 8 %; Neutrophils % (A) 54 %; Platelet Count 172 k/uL (150-450); RBC 4.14 m/uL (3.80-5.40); RDW 12.9 % (11.5-15.5); WBC 3.7 k/uL (3.8-10.6)
[2021-01-17 04:17] LABS: Partial Thromboplastin Time 33.4 sec (22.0-30.0)
[2021-01-17] MEDS: NITROGLYCERIN OINT 1 INCH/GM PACKET TOPICAL SCH ×3 (06:12→17:25)
[2021-01-17] MEDS ORDERED: traMADol 50 MG TAB PO PRN (08:40)
[2021-01-17] MEDS ORDERED: NON FORMULARY DRUG (Krill Oil [Krill Oil] 500 MG Capsule) PO SCH (09:00)
[2021-01-17] MEDS ORDERED: ASPIRIN 325 MG TAB PO SCH (09:00)
--- NOTE | 2021-01-17 09:28 | P.CRDCN ---
History of Present Illness Consult date: 01/17/21 Requesting physician: Checo Rosales Reason for Consult (text): chest pain Chief complaint: chest pressure History of present illness: This is a pleasant 65-year-old female patient was previously seen by Dr. Heller about 2 years ago but has not followed up since then. She has a history of obesity, status post lap band procedure done about 20 years ago, remote smoking history, and hyperlipidemia. Presented to the emergency department with complaints of pressure under her left breast ongoing for about 3 days. Chest x- ray and admission showed no acute pulmonary process. D-dimer was elevated and computed tomography scan of the chest was done which showed no evidence of pulmonary embolism, no evidence of any significant lung disease, dilated lumen filled esophagus suggestive of obstruction due to gastric sleeve. Patient is that have a history of gastric sleeve but does have a history of lap band. She admits that recently if she bends over after she eats she does have a reflux of a clear slimy liquid. EKG on admission showed sinus rhythm with PVC and no EKG changes compared to July 2018. Subsequent EKG around 2 AM this morning showed atrial fibrillation with rapid ventricular response. At that time she was initiated on IV heparin and IV Cardizem. Heart rate is better controlled this morning but she remains in atrial fibrillation. Cardizem drip is currently going at 5 mg an hour. Heparin continuous per protocol. Laboratory values showed troponins negative 3, sodium 136, BUN 16, creatinine 0.66 and NT proBNP of 52. Upon examination the patient is resting comfortably in bed. She continues to complain of some chest pressure under her left breast. Dr. Sellers has been consulted for evaluation of lap band. Past Medical History Past Medical History: Chest Pain / Angina, GERD/Reflux, Osteoarthritis (OA), Pneumonia Additional Past Medical History / Comment(s): Palpatations, occassiobal chest pain with stress History of Any Multi-Drug Resistant Organisms: None Reported Past Surgical History: Breast Surgery, Joint Replacement, Tonsillectomy Additional Past Surgical History / Comment(s): lap band-fluid filled ,kayely hips replacements, rt knee replaced, L breast benign biopsy, colonoscopy/benign polypectomy. Past Anesthesia/Blood Transfusion Reactions: No Reported Reaction Past Psychological History: Anxiety, Depression Additional Psychological History / Comment(s): Pt resides with her spouse and adult son. She is independent. Smoking Status: Never smoker Past Alcohol Use History: Occasional Additional Past Alcohol Use History / Comment(s): Pt started smoking in 1974 and quit in 1994 Past Drug Use History: None Reported - Past Family History Father Family Medical History: Myocardial Infarction ([place]) Additional Family Medical History / Comment(s): from [place] at age 44 Mother Family Medical History: Cancer Additional Family Medical History / Comment(s): Mother of lung cancer at th e age of 70yrs. Medications and Allergies Home Medications Medication Instructions Recorded Confirmed Type ALPRAZolam [Xanax] 0.5 mg PO DAILY PRN 07/04/17 01/16/21 History Diclofenac Potassium [Cataflam] 50 mg PO DAILY PRN 07/04/17 01/16/21 History traMADol HCL [Ultram] 50 mg PO DAILY PRN 07/04/17 01/16/21 History Calcium Carbonate [Calcium] 600 mg PO DAILY 07/19/18 01/16/21 History buPROPion XL [Wellbutrin XL] 150 mg PO DAILY 07/19/18 01/16/21 History Atorvastatin Calcium [Lipitor] 40 mg PO DAILY 01/16/21 01/16/21 History Cholecalciferol [Vitamin D3 (25 25 mcg PO DAILY 01/16/21 01/16/21 History Mcg = 1000 Iu)] Krill Oil 500 mg PO DAILY 01/16/21 01/16/21 History Omeprazole [PriLOSEC] 20 mg PO DAILY 01/16/21 01/16/21 History Allergies Allergy/AdvReac Type Severity Reaction Status Date / Time No Known Allergies Allergy Verified 01/16/21 15:38 Physical Exam Vitals: Vital Signs Temp Pulse Pulse Resp BP BP BP 01/17/21 07:00 97.8 F 69 16 119/81 01/17/21 02:00 97.7 F 137 H 18 122/80 01/17/21 01:22 78 01/16/21 20:00 18 01/16/21 19:30 98.9 F 78 16 103/72 01/16/21 18:36 86 18 132/90 01/16/21 18:00 86 18 01/16/21 17:00 84 18 01/16/21 16:42 67 18 145/92 01/16/21 15:44 73 18 01/16/21 13:41 70 18 142/84 Pulse Ox 01/17/21 07:00 97 01/17/21 02:00 96 01/17/21 01:22 01/16/21 20:00 01/16/21 19:30 96 01/16/21 18:36 96 01/16/21 18:00 96 01/16/21 17:00 96 01/16/21 16:42 96 01/16/21 15:44 96 01/16/21 13:41 97 Intake and Output 01/16/21 01/17/21 01/17/21 22:59 06:59 14:59 Intake Total 120 54.045 Balance 120 54.045 Intake: Intake, IV Titration 54.045 Amount Heparin Sod,Pork in 0.45% 54.045 NaCl 25,000 unit In 0.45 % NaCl 1 250ml.bag @ 10.2 UNITS/KG/HR 9.947 mls/hr IV .Q24H [facility] Rx#: [id number] Oral 120 Other: Voiding Method Toilet # Voids 2 3 Weight 97.522 kg PHYSICAL EXAMINATION: This is a 65-year-old female in no apparent distress at the time of my examination. VITAL SIGNS: Blood pressure 119/81, heart rate 69, respirations 16, temp 97.8F. Patient is 97 % on room air. HEENT: Head is atraumatic, normocephalic. Pupils are equal, round. Sclerae anicteric. Conjunctivae are clear. Mucous membranes of the mouth are moist. Neck is supple. There is no elevated jugular venous pressure. No carotid bruit is heard. CHEST EXAMINATION: Clear to auscultation bilaterally. No wheezes rales or rhonchi. Respirations even and nonlabored. HEART EXAMINATION: Heart a regular rate and rhythm, positive S1 and S2. No S3. No S4. No clicks, rubs or murmurs. ABDOMEN: Soft, nontender. Bowel sounds are heard. No organomegaly noted. EXTREMITIES: 2+ peripheral pulses with no evidence of peripheral edema and no calf tenderness noted. NEUROLOGIC EXAMINATION: Patient is awake, alert and oriented x3. Results 01/17/21 03:46 01/16/21 14:55 Cardiac Enzymes 01/16/21 01/16/21 01/16/21 Range/Units 14:55 14:55 19:15 AST 34 (14-36) U/L Troponin I <0.012 <0.012 (0.000-0.034) ng/mL 01/16/21 Range/Units 22:36 AST (14-36) U/L Troponin I <0.012 (0.000-0.034) ng/mL Coagulation 01/16/21 01/17/21 01/17/21 Range/Units 14:55 03:46 07:57 PT 10.4 11.0 (9.0-12.0) sec APTT 20.0 L 33.4 H 40.4 H (22.0-30.0) sec CBC 01/16/21 01/17/21 Range/Units 14:55 03:46 WBC 3.5 L 3.7 L (3.8-10.6) k/uL RBC 4.21 4.14 (3.80-5.40) m/uL Hgb 13.4 13.3 (11.4-16.0) gm/dL Hct 41.4 41.2 (34.0-46.0) % Plt Count 169 172 (150-450) k/uL Comprehensive Metabolic Panel 01/16/21 Range/Units 14:55 Sodium 136 L (137-145) mmol/L Potassium 5.0 (3.5-5.1) mmol/L Chloride 105 (98-107) mmol/L Carbon Dioxide 20 L (22-30) mmol/L BUN 16 (7-17) mg/dL Creatinine 0.66 (0.52-1.04) mg/dL Glucose 78 (74-99) mg/dL Calcium 9.2 (8.4-10.2) mg/dL AST 34 (14-36) U/L ALT 17 (4-34) U/L Alkaline Phosphatase 65 (38-126) U/L Total Protein 6.9 (6.3-8.2) g/dL Albumin 4.3 (3.5-5.0) g/dL Current Medications Generic Name Dose Route Start Last Admin Trade Name Freq PRN Reason Stop Dose Admin Acetaminophen 650 mg 01/16/21 20:04 01/17/21 03:27 Acetaminophen Tab 325 Mg Tab PO 650 mg Q6HR PRN Administration Fever and/ or Pain Aspirin 325 mg 01/17/21 09:00 01/17/21 08:59 Aspirin 325 Mg Tab PO 325 mg DAILY [facility] Administration Atorvastatin Calcium 40 mg 01/17/21 09:00 Atorvastatin 40 Mg Tab PO DAILY [facility] Bupropion HCl 150 mg 01/17/21 09:00 Bupropion Xl 150 Mg Tab.Er.24h PO DAILY [facility] Calcium Carbonate/Glycine 500 mg 01/17/21 09:00 Calcium Carbonate 500 Mg Chewable PO DAILY [facility] Cholecalciferol 25 mcg 01/17/21 09:00 Cholecalciferol 25 Mcg (1000 Iu) Tablet PO DAILY [facility] Heparin Sodium (Porcine) 0 unit 01/17/21 02:40 01/17/21 08:50 Heparin Sodium 1,000 Un/Ml (10ml Vl) IV 2,400 unit PER PROTOCOL PRN Administration Low PTT Protocol Sodium Chloride 1,000 mls @ 100 mls/hr 01/16/21 17:45 01/17/21 03:46 Saline 0.9% IV 100 mls/hr .Q10H [facility] Administration Heparin Sodium/Sodium Chloride 250 mls @ 9.947 mls/hr 01/17/21 03:00 01/17/21 08:42 25,000 unit/ Sodium Chloride IV 12.2 units/kg/hr .Q24H [facility]ANJ[facility] 11.898 mls/hr Titration Protocol 10.2 UNITS/KG/HR Metoprolol Tartrate 25 mg 01/17/21 09:30 Metoprolol Tartrate 25 Mg Tab PO BID [facility] Nitroglycerin 0.4 mg 01/16/21 17:38 Nitroglycerin Sl Tabs 0.4 Mg Tab SUBLINGUAL Q5M PRN Chest Pain Nitroglycerin 1 inch 01/16/21 18:00 01/17/21 06:12 Nitroglycerin Oint 1 Inch/Gm Packet TOPICAL Not Given Q6HR [facility] Pantoprazole Sodium 40 mg 01/17/21 09:00 Pantoprazole 40 Mg Tablet PO DAILY [facility] Tramadol HCl 50 mg 01/17/21 08:40 Tramadol 50 Mg Tab PO DAILY PRN Pain Intake and Output 01/16/21 01/17/21 01/17/21 22:59 06:59 14:59 Intake Total 120 54.045 Balance 120 54.045 Intake: Intake, IV Titration 54.045 Amount Heparin Sod,Pork in 0.45% 54.045 NaCl 25,000 unit In 0.45 % NaCl 1 250ml.bag @ 10.2 UNITS/KG/HR 9.947 mls/hr IV .Q24H [facility] Rx#: [id number] Oral 120 Other: Voiding Method Toilet # Voids 2 3 Weight 97.522 kg 01/17/21 03:46 01/16/21 14:55 Assessment and Plan Assessment: #1 symptoms of chest pressure, acute coronary event has been ruled out, troponins negative 3, likely GI in nature #2 new Onset atrial fibrillation with rapid ventricular response, likely paroxysmal, currently anticoagulated on heparin drip #3 hyperlipidemia #4 obesity, status post lap band about 20 years ago Plan: From cardiology's perspective we will obtain a 2-D echo with Doppler studies to assess cardiac structure and function. We will add metoprolol 25 mg by mouth twice a day and stop Cardizem drip. Continue heparin drip until evaluated by surgery and if okay with them we'll start the patient on Eliquis 5 mg by mouth twice a day. We'll continue to follow the patient and further recommendations accordingly. WATER HAULER note has been reviewed, I agree with a documented findings and plan of care. Patient was seen and examined.
[2021-01-17 09:53] LABS: Chol/HDL Ratio 1.86 Ratio; HDL Cholesterol 80.7 mg/dL (40.00-60.00); LDL Cholesterol,Calculated 51.7 mg/dL (0.0-131.0); Triglycerides 88.2 mg/dL (0.00-149.00); VLDL Calculation 17.64 mg/dL (5.00-40.00)
[2021-01-17] MEDS: METOPROLOL TARTRATE 25 MG TAB PO SCH ×2 (09:55→19:36)
--- NOTE | 2021-01-17 10:34 | P.HPIM ---
History of Present Illness Patient is a pleasant 65-year-old female came in with complaints of chest pain in the under the left breast area and possible radiation to the left arm history of which is not clear nonpleuritic chest pain patient had elevated d-dimer because of which patient had a CT angios the chest which showed dilated fluid- filled esophagus suggestive of obstruction due to gastric sleeve. Patient's troponins are not elevated initial EKG showed PVCs and patient overnight is found to have new onset atrial fibrillation. Continue was consulted as well as surgery was consulted because of above-mentioned CT findings. She denied any diaphoresis patient chest pain has been going on for 3 days progressively getting worse nonexertional part related to food. REVIEW OF SYSTEMS: CONSTITUTIONAL: No fever, no malaise, no fatigue. HEENT: No recent visual problems or hearing problems. Denied any sore throat. CARDIOVASCULAR: No orthopnea, PND, no palpitations, no syncope. PULMONARY: No shortness of breath, no cough, no hemoptysis. GASTROINTESTINAL: No diarrhea, no nausea, no vomiting, no abdominal pain. NEUROLOGICAL: No headaches, no weakness, no numbness. HEMATOLOGICAL: Denies any bleeding or petechiae. GENITOURINARY: Denies any burning micturition, frequency, or urgency. MUSCULOSKELETAL/RHEUMATOLOGICAL: Denies any joint pain, swelling, or any muscle pain. ENDOCRINE: Denies any polyuria or polydipsia. The rest of the 14-point review of systems is negative. PHYSICAL EXAMINATION: GENERAL: The patient is alert and oriented x3, not in any acute distress. Well developed, well nourished. HEENT: Pupils are round and equally reacting to light. EOMI. No scleral icterus. No conjunctival pallor. Normocephalic, atraumatic. No pharyngeal erythema. No thyromegaly. CARDIOVASCULAR: S1 and S2 present. No murmurs, rubs, or gallops. PULMONARY: Chest is clear to auscultation, no wheezing or crackles. ABDOMEN: Soft, nontender, nondistended, normoactive bowel sounds. No palpable organomegaly. MUSCULOSKELETAL: No joint swelling or deformity. EXTREMITIES: No cyanosis, clubbing, or pedal edema. NEUROLOGICAL: Gross neurological examination did not reveal any focal deficits. SKIN: No rashes. Assessment and plan -Symptoms of chest pressure: Cardiology will evaluate the patient is a possibility at this can be related to gastric sleeve and obstruction. Ruled out acute coronary syndromes n -new onset atrial fibrillation paroxysmal patient is anticoagulated this time and patient is on Cardizem at this time -Hyperlipidemia -Hypertension -Gastroesophageal reflux disease -Depression DVT prophylaxis: Patient is on IV heparin at this time Past Medical History Past Medical History: Chest Pain / Angina, GERD/Reflux, Osteoarthritis (OA), Pneumonia Additional Past Medical History / Comment(s): Palpatations, occassiobal chest pain with stress History of Any Multi-Drug Resistant Organisms: None Reported Past Surgical History: Breast Surgery, Joint Replacement, Tonsillectomy Additional Past Surgical History / Comment(s): lap band-fluid filled ,kayley hips replacements, rt knee replaced, L breast benign biopsy, colonoscopy/benign polypectomy. Past Anesthesia/Blood Transfusion Reactions: No Reported Reaction Past Psychological History: Anxiety, Depression Additional Psychological History / Comment(s): Pt resides with her spouse and adult son. She is independent. Smoking Status: Never smoker Past Alcohol Use History: Occasional Additional Past Alcohol Use History / Comment(s): Pt started smoking in 1974 and quit in 1994 Past Drug Use History: None Reported - Past Family History Father Family Medical History: Myocardial Infarction ([place]) Additional Family Medical History / Comment(s): from [place] at age 44 Mother Family Medical History: Cancer Additional Family Medical History / Comment(s): Mother of lung cancer at the age of 70yrs. Medications and Allergies Home Medications Medication Instructions Recorded Confirmed Type ALPRAZolam [Xanax] 0.5 mg PO DAILY PRN 07/04/17 01/16/21 History Diclofenac Potassium [Cataflam] 50 mg PO DAILY PRN 07/04/17 01/16/21 History traMADol HCL [Ultram] 50 mg PO DAILY PRN 07/04/17 01/16/21 History Calcium Carbonate [Calcium] 600 mg PO DAILY 07/19/18 01/16/21 History buPROPion XL [Wellbutrin XL] 150 mg PO DAILY 07/19/18 01/16/21 History Atorvastatin Calcium [Lipitor] 40 mg PO DAILY 01/16/21 01/16/21 History Cholecalciferol [Vitamin D3 (25 25 mcg PO DAILY 01/16/21 01/16/21 History Mcg = 1000 Iu)] Krill Oil 500 mg PO DAILY 01/16/21 01/16/21 History Omeprazole [PriLOSEC] 20 mg PO DAILY 01/16/21 01/16/21 History Allergies Allergy/AdvReac Type Severity Reaction Status Date / Time No Known Allergies Allergy Verified 01/16/21 15:38 Physical Exam Vitals: Vital Signs Temp Pulse Pulse Resp BP BP BP 01/17/21 07:00 97.8 F 69 16 119/81 01/17/21 02:00 97.7 F 137 H 18 122/80 01/17/21 01:22 78 01/16/21 20:00 18 01/16/21 19:30 98.9 F 78 16 103/72 01/16/21 18:36 86 18 132/90 01/16/21 18:00 86 18 01/16/21 17:00 84 18 01/16/21 16:42 67 18 145/92 01/16/21 15:44 73 18 01/16/21 13:41 70 18 142/84 Pulse Ox 01/17/21 07:00 97 01/17/21 02:00 96 01/17/21 01:22 01/16/21 20:00 01/16/21 19:30 96 01/16/21 18:36 96 01/16/21 18:00 96 01/16/21 17:00 96 01/16/21 16:42 96 01/16/21 15:44 96 01/16/21 13:41 97 Intake and Output 01/16/21 01/17/21 01/17/21 22:59 06:59 14:59 Intake Total 120 54.045 Balance 120 54.045 Intake: Intake, IV Titration 54.045 Amount Heparin Sod,Pork in 0.45% 54.045 NaCl 25,000 unit In 0.45 % NaCl 1 250ml.bag @ 10.2 UNITS/KG/HR 9.947 mls/hr IV .Q24H [facility] Rx#: [id number] Oral 120 Other: Voiding Method Toilet # Voids 2 3 Weight 97.522 kg Results CBC & Chem 7: 01/17/21 03:46 01/16/21 14:55 Labs: Abnormal Lab Results - Last 24 Hours (Table) 01/16/21 01/16/21 01/16/21 Range/Units 14:55 14:55 14:55 WBC 3.5 L (3.8-10.6) k/uL Lymphocytes # 0.9 L (1.0-4.8) k/uL APTT 20.0 L (22.0-30.0) sec D-Dimer 2.55 H (<0.60) mg/L FEU Sodium 136 L (137-145) mmol/L Carbon Dioxide 20 L (22-30) mmol/L HDL Cholesterol (40.00-60.00) mg/dL 01/17/21 01/17/21 01/17/21 Range/Units 03:46 03:46 03:46 WBC 3.7 L (3.8-10.6) k/uL Lymphocytes # (1.0-4.8) k/uL APTT 33.4 H (22.0-30.0) sec D-Dimer (<0.60) mg/L FEU Sodium (137-145) mmol/L Carbon Dioxide (22-30) mmol/L HDL Cholesterol 80.70 H (40.00-60.00) mg/dL 01/17/21 Range/Units 07:57 WBC (3.8-10.6) k/uL Lymphocytes # (1.0-4.8) k/uL APTT 40.4 H (22.0-30.0) sec D-Dimer (<0.60) mg/L FEU Sodium (137-145) mmol/L Carbon Dioxide (22-30) mmol/L HDL Cholesterol (40.00-60.00) mg/dL Thrombosis Risk Factor Assmnt - Choose All That Apply Any of the Below Risk Factors Present?: Yes Each Factor Represents 1 point: Obesity (BMI >25), Varicose veins Each Risk Factor Represents 2 Points: Age 61-74 years Other congenital or acquired thrombophilia - If yes, enter type in comment: No Thrombosis Risk Factor Assessment Total Risk Factor Score: 4 Thrombosis Risk Factor Assessment Level: Moderate Risk
[2021-01-17] MEDS: PANTOPRAZOLE 40 MG TABLET PO SCH (14:31)
[2021-01-17] MEDS: buPROPion XL 150 MG TAB.ER.24H PO SCH (14:31)
--- NOTE | 2021-01-17 14:42 | P.GSCN ---
History of Present Illness Consult date: 01/17/21 History of present illness: CHIEF COMPLAINT: Atypical chest pain HISTORY OF PRESENT ILLNESS: The patient is a 65 year old female who comes in with left sided chest pain for the last 3 days. She has adjustable gastric band present for over 20+ years. She denies pain along her port site. She reports inability to eat beef. She can tolerate chicken, salad, and breads. She reports past history of dysphagia that resolved with releasing some fluid from her band. Her last adjustable gastric band adjustment was over 5 years ago. She reports occasional foamy emesis. She had a CT of the chest demonstrating no pulmonary embolism but abnormality of her bariatric procedure. General surgery is consulted for evaluation of her weight loss procedure. PAST MEDICAL HISTORY: See list and reviewed PAST SURGICAL HISTORY: See list and reviewed MEDICATIONS: See list and reviewed ALLERGIES: See list and reviewed SOCIAL HISTORY: See list and reviewed FAMILY HISTORY: See list and reviewed REVIEW OF ORGAN SYSTEMS: CONSTITUTIONAL: No fevers or chills. BMI 33.7. EYES: Denies any trouble with vision. No glasses. HEENT: No difficulties with hearing. No nosebleeds. Has occasional difficulty swallowing. RESPIRATORY: Has pneumonia. CARDIOVASCULAR: Has chest pain, palpitations, or recent heart attacks. Has hyperlipidemia. GASTROINTESTINAL: Denies fatty food intolerance. Denies change in bowel habits and gas bloat. Has gastroesophageal reflux disease. GENITOURINARY: Denies any blood in urine or increased urinary frequency. NEUROLOGICAL: Denies any numbness or tingling along the distal extremities. No seizure disorders or headaches. MUSCULOSKELETAL: Has back pain, stiffness or joint arthritis. SKIN: No current skin cancer. No rash. PSYCHIATRIC: Has depression. Has anxiety. ENDOCRINE: Denies current thyroid disorders. Denies any blood sugar glucose intolerance. HEME/LYMPHATIC: Denies any lumps and bumps around the neck. No recent deep venous thrombosis. ALLERGY/IMMUNOLOGY: No immunoglobulin therapy. No immune deficiencies. BREAST: Denies current breast lumps, pain or nipple discharge. PHYSICAL EXAM: VITALS: Reviewed CONSTITUTIONAL: Well developed and in no acute distress. EYES: Conjuctivae without sclera icterus. Extraocular movements grossly intact. HEAD, EARS, NOSE, THROAT: Moist buccal mucosa. Head is atraumatic, normocepha lic. Hears conversational speech. No nasal drainage. NECK: Supple. No JV distention. No thyroidomegaly. RESPIRATORY: Non-labored respirations and equal bilateral excursions. No gross wheezes. CARDIOVASCULAR: Palpable 2+ radial pulses. ABDOMEN: Port site without cellulitis or tenderness. LYMPH: No neck lymphadenopathy. MUSCULOSKELETAL: Nail and fingers with good capillary refill. SKIN: Warm and well perfused with good skin turgor. NEUROLOGIC: Cranial nerves II through XII grossly intact. No focal or lateralizing signs. PSYCH: Appropriate affect. Alert and oriented to person, place and time. Displays appropriate insight. CLINCAL LABS: Reviewed. WBC low at 3.5 to 3.7. Hgb normal 13.3. Troponins is normal. IMAGING: Independently reviewed CT chest demonstrates band within good orientation. No band slippage. Esophagus with hiatal hernia and dilation. RADIOLOGY: Report reviewed CT chest mis-indentifying adjustable gastric band for gastric sleeve. ECHO: Ejection fraction 55 to 60%. Presence of atrial fibrillation. ASSESSMENT: 1. Atypical chest pain 2. Gastric band status 3. Atrial fibrillation. PLAN: 1. No acute surgical intervention needed for her band. Mild obstruction or restriction is expected with her band. 2. May have dysphagia diet, ground 3. Outpatient follow-up at the bariatric center for additional bariatric options. ADVANCE DIRECTIVE: Thank you for this kind consultation. Past Medical History Past Medical History: Chest Pain / Angina, GERD/Reflux, Osteoarthritis (OA), Pneumonia Additional Past Medical History / Comment(s): Palpatations, occassiobal chest pain with stress History of Any Multi-Drug Resistant Organisms: None Reported Past Surgical History: Breast Surgery, Joint Replacement, Tonsillectomy Additional Past Surgical History / Comment(s): lap band-fluid filled ,kayley hips replacements, rt knee replaced, L breast benign biopsy, colonoscopy/benign polypectomy. Past Anesthesia/Blood Transfusion Reactions: No Reported Reaction Past Psychological History: Anxiety, Depression Additional Psychological History / Comment(s): Pt resides with her spouse and adult son. She is independent. Smoking Status: Never smoker Past Alcohol Use History: Occasional Additional Past Alcohol Use History / Comment(s): Pt started smoking in 1974 and quit in 1994 Past Drug Use History: None Reported - Past Family History Father Family Medical History: Myocardial Infarction ([place]) Additional Family Medical History / Comment(s): from [place] at age 44 Mother Family Medical History: Cancer Additional Family Medical History / Comment(s): Mother of lung cancer at the age of 70yrs. Medications and Allergies Home Medications Medication Instructions Recorded Confirmed Type ALPRAZolam [Xanax] 0.5 mg PO DAILY PRN 07/04/17 01/16/21 History Diclofenac Potassium [Cataflam] 50 mg PO DAILY PRN 07/04/17 01/16/21 History traMADol HCL [Ultram] 50 mg PO DAILY PRN 07/04/17 01/16/21 History Calcium Carbonate [Calcium] 600 mg PO DAILY 07/19/18 01/16/21 History buPROPion XL [Wellbutrin XL] 150 mg PO DAILY 07/19/18 01/16/21 History Atorvastatin Calcium [Lipitor] 40 mg PO DAILY 01/16/21 01/16/21 History Cholecalciferol [Vitamin D3 (25 25 mcg PO DAILY 01/16/21 01/16/21 History Mcg = 1000 Iu)] Krill Oil 500 mg PO DAILY 01/16/21 01/16/21 History Omeprazole [PriLOSEC] 20 mg PO DAILY 01/16/21 01/16/21 History Allergies Allergy/AdvReac Type Severity Reaction Status Date / Time No Known Allergies Allergy Verified 01/16/21 15:38 Surgical - Exam Vital Signs Pulse Resp BP Pulse Ox 70 18 142/84 97 01/16/21 13:41 01/16/21 13:41 01/16/21 13:41 01/16/21 13:41 Results - Labs 01/17/21 03:46 01/16/21 14:55 Abnormal Lab Results - Last 24 Hours (Table) 01/16/21 01/16/21 01/16/21 Range/Units 14:55 14:55 14:55 WBC 3.5 L (3.8-10.6) k/uL Lymphocytes # 0.9 L (1.0-4.8) k/uL APTT 20.0 L (22.0-30.0) sec D-Dimer 2.55 H (<0.60) mg/L FEU Sodium 136 L (137-145) mmol/L Carbon Dioxide 20 L (22-30) mmol/L HDL Cholesterol (40.00-60.00) mg/dL 01/17/21 01/17/21 01/17/21 Range/Units 03:46 03:46 03:46 WBC 3.7 L (3.8-10.6) k/uL Lymphocytes # (1.0-4.8) k/uL APTT 33.4 H (22.0-30.0) sec D-Dimer (<0.60) mg/L FEU Sodium (137-145) mmol/L Carbon Dioxide (22-30) mmol/L HDL Cholesterol 80.70 H (40.00-60.00) mg/dL 01/17/21 Range/Units 07:57 WBC (3.8-10.6) k/uL Lymphocytes # (1.0-4.8) k/uL APTT 40.4 H (22.0-30.0) sec D-Dimer (<0.60) mg/L FEU Sodium (137-145) mmol/L Carbon Dioxide (22-30) mmol/L HDL Cholesterol (40.00-60.00) mg/dL Diabetes panel 01/16/21 01/17/21 Range/Units 14:55 03:46 Sodium 136 L (137-145) mmol/L Potassium 5.0 (3.5-5.1) mmol/L Chloride 105 (98-107) mmol/L Carbon Dioxide 20 L (22-30) mmol/L BUN 16 (7-17) mg/dL Creatinine 0.66 (0.52-1.04) mg/dL Glucose 78 (74-99) mg/dL Calcium 9.2 (8.4-10.2) mg/dL AST 34 (14-36) U/L ALT 17 (4-34) U/L Alkaline Phosphatase 65 (38-126) U/L Total Protein 6.9 (6.3-8.2) g/dL Albumin 4.3 (3.5-5.0) g/dL Triglycerides 88.20 (0.00-149.00) mg/dL HDL Cholesterol 80.70 H (40.00-60.00) mg/dL Calcium panel 01/16/21 Range/Units 14:55 Calcium 9.2 (8.4-10.2) mg/dL Albumin 4.3 (3.5-5.0) g/dL Pituitary panel 01/16/21 Range/Units 14:55 Sodium 136 L (137-145) mmol/L Potassium 5.0 (3.5-5.1) mmol/L Chloride 105 (98-107) mmol/L Carbon Dioxide 20 L (22-30) mmol/L BUN 16 (7-17) mg/dL Creatinine 0.66 (0.52-1.04) mg/dL Glucose 78 (74-99) mg/dL Calcium 9.2 (8.4-10.2) mg/dL Adrenal panel 01/16/21 Range/Units 14:55 Sodium 136 L (137-145) mmol/L Potassium 5.0 (3.5-5.1) mmol/L Chloride 105 (98-107) mmol/L Carbon Dioxide 20 L (22-30) mmol/L BUN 16 (7-17) mg/dL Creatinine 0.66 (0.52-1.04) mg/dL Glucose 78 (74-99) mg/dL Calcium 9.2 (8.4-10.2) mg/dL Total Bilirubin 0.8 (0.2-1.3) mg/dL AST 34 (14-36) U/L ALT 17 (4-34) U/L Alkaline Phosphatase 65 (38-126) U/L Total Protein 6.9 (6.3-8.2) g/dL Albumin 4.3 (3.5-5.0) g/dL Assessment and Plan (1) Gastric banding status Current Visit: Yes Status: Acute Code(s): Z98.84 - BARIATRIC SURGERY STATUS SNOMED Code(s): 996238545 (2) Hiatal hernia Current Visit: Yes Status: Acute Code(s): K44.9 - DIAPHRAGMATIC HERNIA WITHOUT OBSTRUCTION OR GANGRENE SNOMED Code(s): 47433609 (3) Obesity due to excess calories Current Visit: Yes Status: Acute Code(s): E66.09 - OTHER OBESITY DUE TO EXCESS CALORIES SNOMED Code(s): 932972001 (4) BMI 33.0-33.9,adult Current Visit: Yes Status: Acute Code(s): Z68.33 - BODY MASS INDEX [BMI] 33.0-33.9, ADULT SNOMED Code(s): 403722164 (5) Atrial fibrillation with RVR Current Visit: Yes Status: Acute Code(s): I48.91 - UNSPECIFIED ATRIAL FIBRILLATION SNOMED Code(s): 779450310841775 (6) Chest pain Current Visit: Yes Status: Acute Code(s): R07.9 - CHEST PAIN, UNSPECIFIED SNOMED Code(s): 86855986
[2021-01-17] MEDS: CHOLECALCIFEROL 25 MCG (1000 IU) TABLET PO SCH (14:43)
[2021-01-17] MEDS: CALCIUM CARBONATE 500 MG CHEWABLE PO SCH (14:43)
[2021-01-17] MEDS: ATORVASTATIN 40 MG TAB PO SCH (14:43)
--- NOTE | 2021-01-17 17:25 | ECHOF ---
Referral Reason:A.fib MEASUREMENTS -------- HEIGHT: 170.2 cm WEIGHT: 97.5 kg BP: RVIDd: 3.5 cm (< 3.3) IVSd: 1.4 cm (0.6 - 1.1) LVIDd: 3.8 cm (3.9 - 5.3) LVPWd: 1.4 cm (0.6 - 1.1) IVSs: 1.9 cm LVIDs: 2.8 cm LVPWs: 1.4 cm LAESV Index (A-L): 29.26 ml/m Ao Diam: 3.4 cm (2.0 - 3.7) AV Cusp: 1.7 cm (1.5 - 2.6) MV EXCURSION: 19.089 mm (> 18.000) MV EF SLOPE: 74 mm/s (70 - 150) EPSS: 0.3 cm RAP: 5.00 mmHg RVSP: 26.25 mmHg FINDINGS -------- Atrial fibrillation. This was a technically adequate study. The left ventricular size is normal. There is moderate concentric left ventricular hypertrophy. O verall left ventricular systolic function is normal with, an EF between 55 - 60 %. The right ventricle is normal in size. LA is midly dilated 29-33ml/m2. The right atrial size is normal. The aortic valve is trileaflet, and appears structurally normal. No aortic stenosis or regurgitation. The mitral valve is normal. Mild mitral regurgitation is present. The tricuspid valve appears structurally normal. Mild tricuspid regurgitation present. Right vent ricular systolic pressure is normal at < 35 mmHg. There is no pulmonic regurgitation present. The aortic root size is normal. Echo free space indicative of a pericardial fat pad. CONCLUSIONS -------- 1. Atrial fibrillation. 2. There is moderate concentric left ventricular hypertrophy. 3. Overall left ventricular systolic function is normal with, an EF between 55 - 60 %. 4. LA is midly dilated 29-33ml/m2. 5. The aortic valve is trileaflet, and appears structurally normal. No aortic stenosis or regurgitati on. 6. Mild mitral regurgitation is present. 7. Mild tricuspid regurgitation present. CLINICAL PARTNER: Zarina Keys RDCS
[2021-01-17] MEDS: APIXABAN 5 MG TAB PO SCH (19:36)
[2021-01-18] MEDS: NITROGLYCERIN OINT 1 INCH/GM PACKET TOPICAL SCH ×2 (03:25)
[2021-01-18 07:47] VITALS: BP 137/81; PULSE 60; RESP 16; TEMP 97.6
[2021-01-18] MEDS: ATORVASTATIN 40 MG TAB PO SCH (09:10)
[2021-01-18] MEDS: CHOLECALCIFEROL 25 MCG (1000 IU) TABLET PO SCH (09:10)
[2021-01-18] MEDS: CALCIUM CARBONATE 500 MG CHEWABLE PO SCH (09:10)
[2021-01-18] MEDS: METOPROLOL TARTRATE 25 MG TAB PO SCH (09:10)
[2021-01-18] MEDS: buPROPion XL 150 MG TAB.ER.24H PO SCH (09:11)
[2021-01-18] MEDS: PANTOPRAZOLE 40 MG TABLET PO SCH (09:11)
[2021-01-18] MEDS: APIXABAN 5 MG TAB PO SCH (09:11)
[2021-01-18 09:18] LABS: Basophils # (A) 0.02 X 10*3/uL (0.00-0.10); Basophils % (A) 0.5 %; Eosinophils # (A) 0.11 X 10*3/uL (0.04-0.35); Eosinophils % (A) 2.9 %; HCT 35.8 % (37.2-46.3); HGB 11.4 g/dL (12.0-15.0); Lymphocytes # (A) 1.25 X 10*3/uL (0.90-5.00); Lymphocytes % (A) 33.2 %; MCH 31.8 pg (27.0-32.0); MCHC 31.8 g/dL (32.0-37.0); MCV 99.7 fL (80.0-97.0); Mean Platelet Volume 10.9 fL (9.5-12.2); Monocytes # (A) 0.46 X 10*3/uL (0.20-1.00); Monocytes % (A) 12.2 %; Neutrophils # (A) 1.92 X 10*3/uL (1.80-7.70); Neutrophils % (A) 50.9 %; Platelet Count 168 X 10*3/uL (140-440); RBC 3.59 X 10*6/uL (4.10-5.20); RDW 13.2 % (11.5-14.5); WBC 3.77 X 10*3/uL (4.50-10.00)
[2021-01-18 09:42] LABS: INR 0.97 (0.90-1.11); Prothrombin Time 10.6 sec (9.9-11.9)
--- NOTE | 2021-01-18 11:58 | P.DS ---
Providers Date of admission: 01/17/21 13:25 Attending physician: Yesenia Quinteros Consults: 01/16/21 17:38 Consult Physician Routine Consulting Provider: Daljit Sellers Consult Reason/Comments: eval lap band Do you want consulting provider notified?: Yes 01/16/21 17:40 Consult Physician Urgent Consulting Provider: Tyler Jackson Consult Reason/Comments: cp Do you want consulting provider notified?: Yes Primary care physician: Madonna Woodard [facility] Course: Patient presents 65-year-old female came in with complaints of foot pain under the breast area. Patient is found to have elevated d-dimer because of which a CT angios the chest was opted which did not show any pulmonary embolism although it showed some dilated esophagus and the patient had gastric sleeve surgery the believe that these findings may be contributing to her for pain that just surgery was consulted and as per general surgery is ALLERGIC normal findings post bariatric surgery no further intervention is being planned cardio evaluated the patient rule out acute coronary syndromes patient's pain is noncardiac atypical although patient is found to have atrial fibrillation is a new onset A. fib patient is present sinus rhythm patient was started on Eliquis echocardiac exam is within normal limits patient is being discharged on metoprolol and Eliquis. Regarding her abdominal pain most probably gastric esophageal reflux disease or peptic ulcer disease patient will be discharged on empiric proton pump inhibitor for 2-4 weeks. Patient is also on diclofenac at home which will be discontinued PHYSICAL EXAMINATION: GENERAL: The patient is alert and oriented x3, not in any acute distress. Well developed, well nourished. HEENT: Pupils are round and equally reacting to light. EOMI. No scleral icterus. No conjunctival pallor. Normocephalic, atraumatic. No pharyngeal erythema. No thyromegaly. CARDIOVASCULAR: S1 and S2 present. No murmurs, rubs, or gallops. PULMONARY: Chest is clear to auscultation, no wheezing or crackles. ABDOMEN: Soft, nontender, nondistended, normoactive bowel sounds. No palpable organomegaly. MUSCULOSKELETAL: No joint swelling or deformity. EXTREMITIES: No cyanosis, clubbing, or pedal edema. NEUROLOGICAL: Gross neurological examination did not reveal any focal deficits. SKIN: No rashes. Assessment and plan -Possible gastroesophageal reflux disease or peptic ulcer disease -Ruled out acute coronary syndromes, ruled out pulmonary embolism -new onset atrial fibrillation paroxysmal , presently sinus rhythm -Hyperlipidemia -Hypertension -Gastroesophageal reflux disease -Depression Plan - Discharge Summary Discharge Rx Participant: Yes New Discharge Prescriptions: New Apixaban [Eliquis] 5 mg PO BID #30 tab Pantoprazole [Protonix] 40 mg PO DAILY #30 tab Metoprolol Tartrate [Lopressor] 25 mg PO BID #30 tab Continue traMADol HCL [Ultram] 50 mg PO DAILY PRN PRN Reason: Pain ALPRAZolam [Xanax] 0.5 mg PO DAILY PRN PRN Reason: Anxiety Calcium Carbonate [Calcium] 600 mg PO DAILY buPROPion XL [Wellbutrin XL] 150 mg PO DAILY Cholecalciferol [Vitamin D3 (25 Mcg = 1000 Iu)] 25 mcg PO DAILY Omeprazole [PriLOSEC] 20 mg PO DAILY Atorvastatin Calcium [Lipitor] 40 mg PO DAILY Krill Oil 500 mg PO DAILY Discontinued Diclofenac Potassium [Cataflam] 50 mg PO DAILY PRN PRN Reason: Pain Discharge Medication List ALPRAZolam [Xanax] 0.5 mg PO DAILY PRN 07/04/17 [History] traMADol HCL [Ultram] 50 mg PO DAILY PRN 07/04/17 [History] Calcium Carbonate [Calcium] 600 mg PO DAILY 07/19/18 [History] buPROPion XL [Wellbutrin XL] 150 mg PO DAILY 07/19/18 [History] Atorvastatin Calcium [Lipitor] 40 mg PO DAILY 01/16/21 [History] Cholecalciferol [Vitamin D3 (25 Mcg = 1000 Iu)] 25 mcg PO DAILY 01/16/21 [History] Krill Oil 500 mg PO DAILY 01/16/21 [History] Omeprazole [PriLOSEC] 20 mg PO DAILY 01/16/21 [History] Apixaban [Eliquis] 5 mg PO BID #30 tab 01/18/21 [Rx] Metoprolol Tartrate [Lopressor] 25 mg PO BID #30 tab 01/18/21 [Rx] Pantoprazole [Protonix] 40 mg PO DAILY #30 tab 01/18/21 [Rx] Follow up Appointment(s)/Referral(s): Ramu Diane MD [STAFF PHYSICIAN] [facility] [place] [facility] 1 Week Madonna Woodard MD [Primary Care Provider] - 3 Days Patient Instructions/Handouts: A-fib (Atrial Fibrillation) (DC)
--- NOTE | 2021-01-18 12:48 | P.PN ---
Subjective Progress Note Date: 01/18/21 This is a pleasant 65-year-old female patient was previously seen by Dr. Heller about 2 years ago but has not followed up since then. She has a history of obesity, status post lap band procedure done about 20 years ago, remote smoking history, and hyperlipidemia. Presented to the emergency department with complaints of pressure under her left breast ongoing for about 3 days. Chest x- ray and admission showed no acute pulmonary process. D-dimer was elevated and computed tomography scan of the chest was done which showed no evidence of pulmonary embolism, no evidence of any significant lung disease, dilated lumen filled esophagus suggestive of obstruction due to gastric sleeve. Patient is that have a history of gastric sleeve but does have a history of lap band. She admits that recently if she bends over after she eats she does have a reflux of a clear slimy liquid. EKG on admission showed sinus rhythm with PVC and no EKG changes compared to July 2018. Subsequent EKG around 2 AM this morning showed atrial fibrillation with rapid ventricular response. At that time she was initiated on IV heparin and IV Cardizem. Heart rate is better controlled this morning but she remains in atrial fibrillation. Cardizem drip is currently going at 5 mg an hour. Heparin continuous per protocol. Laboratory values showed troponins negative 3, sodium 136, BUN 16, creatinine 0.66 and NT proBNP of 52. Upon examination the patient is resting comfortably in bed. She continues to complain of some chest pressure under her left breast. Dr. Sellers has been consulted for evaluation of lap band. 01/18/2021 Patient converted to sinus mechanism yesterday afternoon. She was evaluated by surgery and no intervention is planned at this time. Morning she is overall feeling okay. She continues to have intermittent pressure under her left breast that seems to be worse with inspiration. Echocardiogram showed normal LV systolic function with an ejection fraction of 55-60%, mild mitral regurgitation and mild tricuspid regurgitation. She's been initiated on Eliquis milligrams by mouth twice a day. Objective - Vital Signs Vital signs: Vital Signs Temp 97.6 F 01/18/21 07:00 Pulse 60 01/18/21 07:00 Resp 16 01/18/21 08:00 BP 137/81 01/18/21 07:00 Pulse Ox 97 01/18/21 07:00 Intake & Output 1001/18/21 01/18/21 18:59 06:59 18:59 Intake Total 92.878 0 Balance 92.878 0 Intake: IV 0 Sodium Chloride 0.9% 1, 0 000 ml @ 100 mls/hr IV . Q10H [facility] Rx#:[id number] Intake, IV Titration 92.878 Amount Diltiazem 125 mg In 38.833 Sodium Chloride 0.9% 100 ml @ 5 MG/HR 5 mls/hr IV .Q24H [facility] Rx#:[id number] Heparin Sod,Pork in 0.45% 54.045 NaCl 25,000 unit In 0.45 % NaCl 1 250ml.bag @ 10.2 UNITS/KG/HR 9.947 mls/hr IV .Q24H [facility] Rx#: [id number] Other: Voiding Method Toilet Toilet Toilet # Voids 4 2 - Exam HEENT: Head is atraumatic, normocephalic. Pupils are equal, round. Sclerae anicteric. Conjunctivae are clear. Mucous membranes of the mouth are moist. Neck is supple. There is no elevated jugular venous pressure. No carotid bruit is heard. CHEST EXAMINATION: Clear to auscultation bilaterally. No wheezes rales or rhon chi. Respirations even and nonlabored. HEART EXAMINATION: Heart regular rate and rhythm, positive S1 and S2. No S3. No S4. No clicks, rubs or murmurs. ABDOMEN: Soft, nontender. Bowel sounds are heard. No organomegaly noted. EXTREMITIES: 2+ peripheral pulses with no evidence of peripheral edema and no calf tenderness noted. NEUROLOGIC EXAMINATION: Patient is awake, alert and oriented x3. - Labs CBC & Chem 7: 01/18/21 06:09 01/16/21 14:55 Labs: Abnormal Lab Results - Last 24 Hours (Table) 01/17/21 01/18/21 Range/Units 14:33 06:09 WBC 3.77 L (4.50-10.00) X 10*3/uL RBC 3.59 L (4.10-5.20) X 10*6/uL Hgb 11.4 L (12.0-15.0) g/dL Hct 35.8 L (37.2-46.3) % MCV 99.7 H (80.0-97.0) fL MCHC 31.8 L (32.0-37.0) g/dL APTT 45.9 H (22.0-30.0) sec Assessment and Plan Assessment: #1 symptoms of chest pressure, atypical, acute coronary event has been ruled out, troponins negative 3 #2 new Onset atrial fibrillation with rapid ventricular response, paroxysmal, currently anticoagulated on Eliquis #3 hyperlipidemia #4 obesity, status post lap band about 20 years ago Plan: From cardiology's perspective patient may be discharged home today. We will follow up with her as an outpatient and likely schedule outpatient stress testing at that time. CAN OPERATOR note has been reviewed, I agree with a documented findings and plan of care. Patient was seen and examined.
[2021-01-18] MEDS ORDERED: METOPROLOL TARTRATE 25 MG TAB PO STA (14:28)
[2021-01-18] MEDS ORDERED: APIXABAN 5 MG TAB PO ONE (14:32)
--- NOTE | 2021-01-18 15:05 | P.PN ---
Subjective Progress Note Date: 01/18/21 CHIEF COMPLAINT: Atypical chest pain HISTORY OF PRESENT ILLNESS: The patient is a 65 year old female with history of atypical chest pain for 3 days including just for gastric band over 20+ years ago. Imaging studies demonstrated dilated esophagus. Patient has been asymptomatic. She is on blood thinners for new onset atrial fibrillation. PHYSICAL EXAM: VITALS: Reviewed CONSTITUTIONAL: Well developed and in no acute distress. EYES: Conjuctivae without sclera icterus. Extraocular movements grossly intact. HEAD, EARS, NOSE, THROAT: Moist buccal mucosa. Head is atraumatic, normocephalic. Hears conversational speech. No nasal drainage. NECK: Supple. No JV distention. No thyroidomegaly. RESPIRATORY: Non-labored respirations and equal bilateral excursions. No gross wheezes. CARDIOVASCULAR: Regular rate. Regular rhythm. ABDOMEN: Protuberant but nontender. MUSCULOSKELETAL: No clubbing cyanosis. SKIN: Warm and well perfused with good skin turgor. NEUROLOGIC: Cranial nerves II through XII grossly intact. No focal or lateralizing signs. PSYCH: Appropriate affect. Alert and oriented to person, place and time. Displays appropriate insight. CLINCAL LABS: Reviewed. Hemoglobin down 13.3-11.4. WBC with leukopenia, 3.4. ASSESSMENT: 1. Atypical chest pain 2. Gastric band status 3. Atrial fibrillation. 4. Leukopenia PLAN: 1. Adjustable gastric band is more than 20+ years old which generally would have been removed when you generation adjustable gastric band. 2. Overall, patient asymptomatic for esophageal obstruction. 3. Recommend follow-up as outpatient bariatric center for her bariatric options. 4. Diet as tolerated. Objective - Vital Signs Vital signs: Vital Signs Temp 97.6 F 01/18/21 07:00 Pulse 60 01/18/21 07:00 Resp 16 01/18/21 08:00 BP 137/81 01/18/21 07:00 Pulse Ox 97 01/18/21 07:00 Intake & Output 01/17/21 01/18/21 01/18/21 18:59 06:59 18:59 Intake Total 92.878 0 Balance 92.878 0 Intake: IV 0 Sodium Chloride 0.9% 1, 0 000 ml @ 100 mls/hr IV . Q10H [facility] Rx#:[id number] Intake, IV Titration 92.878 Amount Diltiazem 125 mg In 38.833 Sodium Chloride 0.9% 100 ml @ 5 MG/HR 5 mls/hr IV .Q24H [facility] Rx#:[id number] Heparin Sod,Pork in 0.45% 54.045 NaCl 25,000 unit In 0.45 % NaCl 1 250ml.bag @ 10.2 UNITS/KG/HR 9.947 mls/hr IV .Q24H [facility] Rx#: [id number] Other: Voiding Method Toilet Toilet Toilet # Voids 4 2 - Labs CBC & Chem 7: 01/18/21 06:09 01/16/21 14:55 Labs: Abnormal Lab Results - Last 24 Hours (Table) 01/17/21 01/18/21 Range/Units 14:33 06:09 WBC 3.77 L (4.50-10.00) X 10*3/uL RBC 3.59 L (4.10-5.20) X 10*6/uL Hgb 11.4 L (12.0-15.0) g/dL Hct 35.8 L (37.2-46.3) % MCV 99.7 H (80.0-97.0) fL MCHC 31.8 L (32.0-37.0) g/dL APTT 45.9 H (22.0-30.0) sec Assessment and Plan (1) Gastric banding status Status: Acute Code(s): Z98.84 - BARIATRIC SURGERY STATUS SNOMED Code(s): 677107258 (2) Hiatal hernia Status: Acute Code(s): K44.9 - DIAPHRAGMATIC HERNIA WITHOUT OBSTRUCTION OR GANGRENE SNOMED Code(s): 31596582 (3) Obesity due to excess calories Status: Acute Code(s): E66.09 - OTHER OBESITY DUE TO EXCESS CALORIES SNOMED Code(s): 067231350 (4) BMI 33.0-33.9,adult Status: Acute Code(s): Z68.33 - BODY MASS INDEX [BMI] 33.0-33.9, ADULT SNOMED Code(s): 317208531 (5) Atrial fibrillation with RVR Status: Acute Code(s): I48.91 - UNSPECIFIED ATRIAL FIBRILLATION SNOMED Code(s): 958891265703025 (6) Chest pain Status: Acute Code(s): R07.9 - CHEST PAIN, UNSPECIFIED SNOMED Code(s): 13990687
== END 2021-01-18 14:48 | disposition home or self-care (01) | DRG 384 ==
LOC: EC 12:57 → 6NMEDSUR 17:40 → OBSVTOIN 01-17 13:25
PROVIDERS: ADMIT Internal Medicine; ATTEND Internal Medicine
DX: K27.9 Peptic ulcer, site unspecified, unspecified as acute or chronic, without hemorrhage or perforation (principal); K95.09 Other complications of gastric band procedure; K21.9 Gastro-esophageal reflux disease without esophagitis; D72.819 Decreased white blood cell count, unspecified; E66.09 Other obesity due to excess calories; Z68.33 Body mass index [BMI] 33.0-33.9, adult; E78.5 Hyperlipidemia, unspecified; F32.9 Major depressive disorder, single episode, unspecified; F41.9 Anxiety disorder, unspecified; I10 Essential (primary) hypertension; I48.0 Paroxysmal atrial fibrillation; Z20.822 Contact with and (suspected) exposure to COVID-19; K44.9 Diaphragmatic hernia without obstruction or gangrene; Z79.01 Long term (current) use of anticoagulants; Z79.899 Other long term (current) drug therapy; Z80.1 Family history of malignant neoplasm of trachea, bronchus and lung; Z82.49 Family history of ischemic heart disease and other diseases of the circulatory system; Z87.891 Personal history of nicotine dependence; Z98.84 Bariatric surgery status; Y83.8 Other surgical procedures as the cause of abnormal reaction of the patient, or of later complication, without mention of misadventure at the time of the procedure; R07.89 Other chest pain; K22.89 Other specified disease of esophagus
CPT/HCPCS: 36415; 71046; 71275; 80053; 80061; 83735; 83880; 84484; 85025; 85379; 85610; 85730; 87635; 93005; 93306; 99285

== ENCOUNTER → 2021-02-10 | Outpatient (CLI) | payer BC, MEDICARE ==
[2021-02-10 15:43] VITALS: BP 127/85; PULSE 63; RESP 18; TEMP 98.1; BMI 34.7
--- NOTE | 2021-02-10 16:35 | P.BASOAP ---
Subjective Progress Note Date: 02/10/21 Principal diagnosis: GERD 65-year-old female here for LAP-BAND evaluation. She was recently in the hospital with left-sided chest pain. Cardiac workup normal except for atrial fibrillation. Patient had a CT chest did show some esophageal dilation and suspicion for possible gastric prolapse. Patient says she only has episodes of regurgitation once a month or less. No pain with swallowing. Patient does not want any fluid removed if we can avoid it. LAP-BAND performed 2008. Weight before LAP-BAND 305, lowest weight 213, current weight 221. Objective - Vital Signs Vital signs: Vital Signs Temp 98.1 F 02/10/21 15:38 Pulse 63 02/10/21 15:38 Resp 18 02/10/21 15:38 BP 127/85 02/10/21 15:38 Pulse Ox Intake & Output 02/09/21 02/10/21 02/10/21 18:59 06:59 18:59 Weight 100.425 kg - Exam Abdomen: Soft, nontender, nondistended Assessment/Plan (1) BMI 33.0-33.9,adult Narrative/Plan: clinical scenario discussed with the patient. We will obtain esophagram at this time. Patient will follow-up in the office after that to decide whether emptying the band or band removal is required. No adjustments today. Plan: Date: 02/10/21 Initial Weight: Initial BMI: Current Weight: 100.425 kg Current BMI: 34.7 Type of Surgery: Total Volume in Band: Previous Volume: Volume Removed: Volume Added: Band Size:
== END ==
LOC: BARWHC3 14:34
PROVIDERS: ATTEND Surgery
DX: K21.9 Gastro-esophageal reflux disease without esophagitis (principal); Z98.84 Bariatric surgery status; Z87.891 Personal history of nicotine dependence
CPT/HCPCS: 99211

== ENCOUNTER → 2021-02-26 | Outpatient (CLI) | payer BC, MEDICARE ==
--- NOTE | 2021-02-26 09:46 | FL ---
GASTRIC BANDING ESOPHAGRAM CLINICAL HISTORY: Pain Gastric banding esophagram was performed. The patient ingested thin liquid barium. Gastric band is n oted to be in place. There is dilatation of the esophagus with delayed esophagogastric transit. Narro wing at the site of band placement. A degree of slippage is difficult to exclude. IMPRESSION: There is dilatation of the esophagus with delayed esophagogastric transit. Narrowing at the site of b and placement. A degree of slippage is difficult to exclude.
--- NOTE | 2021-02-26 14:16 | P.BASOAP ---
Subjective Progress Note Date: 02/26/21 Principal diagnosis: morbid obesity patient returns after esophagram done this morning. She was seen a few weeks ago. She was hospitalized recently. Patient had chest pain at that time. Mild reflux symptoms. Patient did not want her band empty last visit. Today's upper GI shows the band is quite tight with significant esophageal dilation. Cannot rule out small degree of slippage. Objective - Exam Abdomen: Soft, nontender, nondistended Assessment/Plan (1) BMI 33.0-33.9,adult Narrative/Plan: options discussed with patient in detail. Recommend emptying band at this time. Patient is agreeable. She and I discussed that removing LAP-BAND may be a reasonable option. Will tentatively plan man removal after cardiac clearance. The patient's lap band port was palpated. The site was aseptically prepped. The Rose needle was advanced into the port. A total of 5ml of fluid was removed. Band is now emptying. Pressure was held and a sterile dressing was applied. Plan: Date: Initial Weight: Initial BMI: Current Weight: Current BMI: Type of Surgery: Total Volume in Band: Previous Volume: Volume Removed: Volume Added: Band Size:
== END | disposition home or self-care (01) ==
LOC: RADUSWWP 08:42
PROVIDERS: ATTEND Surgery
DX: K22.89 Other specified disease of esophagus (principal)
CPT/HCPCS: 74220

== ENCOUNTER → 2021-02-26 | Outpatient (CLI) | payer BC, MEDICARE ==
[2021-02-26 13:20] VITALS: BP 141/85; PULSE 70; RESP 16; TEMP 98.2; BMI 34.9
== END ==
LOC: BARWHC3 12:55
PROVIDERS: ATTEND Surgery
DX: E66.01 Morbid (severe) obesity due to excess calories (principal); Z68.33 Body mass index [BMI] 33.0-33.9, adult; Z98.84 Bariatric surgery status
CPT/HCPCS: 99212

== ENCOUNTER → 2021-03-26 | Outpatient (CLI) | payer BC ==
[2021-03-26 14:12] LABS: HGB 12.1 gm/dL (11.4-16.0); MCH 32.1 pg (25.0-35.0); MCHC 31.9 g/dL (31.0-37.0); MCV 100.8 fL (80.0-100.0); Macrocytosis Slight; Mean Platelet Volume 8.5; Platelet Count 185 k/uL (150-450); RBC 3.77 m/uL (3.80-5.40); RDW 13.3 % (11.5-15.5); WBC 4.4 k/uL (3.8-10.6)
[2021-03-26 14:31] LABS: African American GFR (CKD) >90 (>60 ml/min/1.73 sqM); Anion Gap 7 mmol/L; Blood Urea Nitrogen 14 mg/dL (7-17); Carbon Dioxide 27 mmol/L (22-30); Chloride 103 mmol/L (98-107); Non-African American GFR(CKD) 86 (>60 ml/min/1.73 sqM); Potassium 4.7 mmol/L (3.5-5.1); Sodium 137 mmol/L (137-145)
== END | disposition home or self-care (01) ==
LOC: LABPAT 12:02
PROVIDERS: ATTEND Internal Medicine Interventional Cardiology
DX: Z01.812 Encounter for preprocedural laboratory examination (principal); R07.9 Chest pain, unspecified
CPT/HCPCS: 36415; 80051; 82565; 84520; 85027

== ENCOUNTER 2021-03-27 06:03 | Day surgery (SDC) | payer BC ==
[2021-03-26 14:08] VITALS: BMI 36.0
[2021-03-27] MEDS ORDERED: ALPRAZolam 0.25 MG TAB PO PRN (06:21)
[2021-03-27] MEDS ORDERED: ATORVASTATIN 80 MG TAB PO STA (06:21)
[2021-03-27] MEDS ORDERED: ALPRAZolam 0.5 MG TAB PO PRN ×2 (06:21→08:29)
[2021-03-27] MEDS ORDERED: NITROGLYCERIN SL TABS 0.4 MG TAB SUBLINGUAL PRN (06:21)
[2021-03-27] MEDS ORDERED: ASPIRIN 325 MG TAB PO STA (06:21)
[2021-03-27] MEDS ORDERED: SODIUM CHLORIDE 0.9% 1,000 ML in EMPTY BAG 1 BAG IV SCH (06:21)
[2021-03-27 06:35] VITALS: RESP 18; TEMP 98.1
[2021-03-27] MEDS ORDERED: HEPARIN SODIUM,PORCINE 10,000 UNIT in SODIUM CHLORIDE 0.9% 1,000 ML IRRIGATION PRN (07:00)
[2021-03-27] MEDS ORDERED: HEPARIN SODIUM,PORCINE 2,500 UNIT in SODIUM CHLORIDE 0.9% 250 ML IRRIGATION PRN (07:00)
[2021-03-27] MEDS ORDERED: HEPARIN SODIUM 1,000 UN/ML (10ML VL) ONE (07:20)
[2021-03-27] MEDS ORDERED: VERAPAMIL 2.5 MG/ML 2 ML AMP ONE (07:21)
[2021-03-27] MEDS ORDERED: LIDOCAINE 1% INJ 10MG/ML (20 ML MDV) ONE (07:21)
[2021-03-27] MEDS ORDERED: fentaNYL (PF) 50 MCG/ML 2 ML AMP ONE (07:21)
[2021-03-27] MEDS ORDERED: fentaNYL (PF) 50 MCG/ML 2 ML AMP IV ONE (07:57)
[2021-03-27] MEDS ORDERED: LIDOCAINE 1% INJ 10MG/ML (20 ML MDV) SQ ONE (08:01)
[2021-03-27] MEDS ORDERED: VERAPAMIL SYRINGE (5 MG/10 ML) INTRAARTER ONE (08:02)
[2021-03-27] MEDS ORDERED: HEPARIN SODIUM 1,000 UN/ML (10ML VL) IV ONE (08:12)
[2021-03-27] MEDS ORDERED: IOPAMIDOL-370 125ML BTL INJ ONE (08:17)
[2021-03-27] MEDS ORDERED: RX INFO: IV CONTRAST WAS GIVEN 1 EACH MISC MISCELLANE PRN (08:28)
[2021-03-27] MEDS ORDERED: traMADol 50 MG TAB PO PRN (08:29)
[2021-03-27] MEDS ORDERED: SODIUM CHLORIDE 0.9% 1,000 ML IV SCH (08:30)
[2021-03-27] MEDS ORDERED: NON FORMULARY DRUG (Calcium Carbonate [Calcium] 600 MG Tablet) PO SCH (09:00)
[2021-03-27] MEDS ORDERED: buPROPion XL 150 MG TAB.ER.24H PO SCH (09:00)
[2021-03-27] MEDS ORDERED: PANTOPRAZOLE 40 MG TABLET PO SCH (09:00)
[2021-03-27] MEDS ORDERED: NON FORMULARY DRUG (Krill Oil [Krill Oil] 500 MG Capsule) PO SCH (09:00)
[2021-03-27] MEDS ORDERED: METOPROLOL TARTRATE 25 MG TAB PO SCH (09:00)
[2021-03-27] MEDS ORDERED: CHOLECALCIFEROL 25 MCG (1000 IU) TABLET PO SCH (09:00)
[2021-03-27] MEDS ORDERED: ATORVASTATIN 40 MG TAB PO SCH (09:00)
--- NOTE | 2021-03-27 10:07 | CC ---
CARDIAC CATHETERIZATION REPORT Mrs. Forman is a 65-year-old female with a history of hyperlipidemia and paroxysmal atrial fibrillation who had some episodes of chest discomfort. She underwent myocardial perfusion imaging that showed evidence of stress-induced ischemia involving the lateral wall. In view of that, recommendation was made regarding cardiac catheterization. The procedure as well as risks and complications were discussed with the patient, who was in full understanding and agreement. PROCEDURE DESCRIPTION: Patient was brought to the quality assurance qa lab technician in a fasting, semi-sedated state after receiving fentanyl and Benadryl and achieving a moderate conscious sedated state. Using Xylocaine anesthesia and Seldinger technique, a 6-Chilean sheath was introduced into the right radial artery. Selective right and left coronary angiography was performed using 5- [place]an 3.5 bend right and left Amari catheters. Multiple views were taken of the arteries, including hemiaxial views. Following that, a 5-Ch[place]an tight pigtail catheter was introduced into the left ventricle and left ventricular end-diastolic pressure was calculated. Following that, catheters and sheath were removed. Hemostasis was obtained with deployment of a TR band. There was no immediate complication. Patient was returned to her room in stable condition. Of note, the patient received 5000 units of intravenous heparin as well as intraarterial verapamil. FINDINGS: LEFT MAIN: This is a short-sized vessel bifurcating into left circumflex and left main artery coronary artery. Left main coronary artery has no evidence of high-grade stenosis. LEFT ANTERIOR DESCENDING ARTERY: This is a large-sized vessel reaching toward the apex, giving rise to a proximal diagonal branch. The left anterior descending coronary artery as well as its branches have no evidence of obstructive coronary artery disease. LEFT CIRCUMFLEX: This is a large nondominant vessel giving rise to a large obtuse marginal branch. The left circumflex as well as its branches have no evidence of obstructive coronary artery disease. RIGHT CORONARY ARTERY: This is a large dominant vessel bifurcating into PDA and posterolateral segment and branches. The right coronary artery as well as its branches have no evidence of obstructive coronary artery disease. LEFT VENTRICULOGRAM: Left ventriculogram was not performed. HEMODYNAMICS: There was no gradient across the aortic valve. The left ventricular end- diastolic pressure was 20 to 24 mmHg. CONCLUSION: 1. Normal coronary arteries. 2. Right dominance. RECOMMENDATIONS: In view of findings and anatomy, I have recommended continued medical therapy with the aggressive coronary risk factor modifications that have been initiated. The patient is stable to undergo her scheduled surgical intervention. Duration of sedation 17 minutes. MMODL / IJN: [id number] /
--- NOTE | 2021-03-27 10:07 | LTR ---
March 27, 2021 To: Dr. Woodard Regarding: Lindy Forman (53) Dear Dr. Woodard, I had the pleasure of performing cardiac catheterization on Mrs. Forman at [facility] pneumonia March 27, and a full copy of the procedure note will be forwarded to you. In brief, she was found to have no evidence of obstructive coronary artery disease. Based on those findings, I have recommended continued medical therapy and I see no contraindication to proceed with her scheduled surgical intervention. Thank you again for allowing me to participate in this patient's care. Please feel free to call with any questions. Sincerely, Ramu Diane M.D. MARLA / MONIQUE: [id number] /
[2021-03-27 12:03] VITALS: BP 114/78; PULSE 65
== END 2021-03-27 12:18 | disposition home or self-care (01) ==
LOC: CATHCVL 06:03
PROVIDERS: ATTEND Internal Medicine Interventional Cardiology
DX: R94.39 Abnormal result of other cardiovascular function study (principal); R07.89 Other chest pain; I48.0 Paroxysmal atrial fibrillation; E78.2 Mixed hyperlipidemia; M19.90 Unspecified osteoarthritis, unspecified site; Z20.822 Contact with and (suspected) exposure to COVID-19; Z98.84 Bariatric surgery status; Z79.01 Long term (current) use of anticoagulants; Z79.899 Other long term (current) drug therapy; Z87.891 Personal history of nicotine dependence; Z96.649 Presence of unspecified artificial hip joint; Z82.49 Family history of ischemic heart disease and other diseases of the circulatory system
CPT/HCPCS: 93458; 87635; C1894; C1769 ×2; J2001; J3010; J1644; Q9967

== ENCOUNTER → 2021-04-14 | Outpatient (CLI) | payer BC ==
[2021-04-14 14:15] VITALS: BP 110/81; PULSE 76; RESP 16; TEMP 98.4; BMI 35.6
--- NOTE | 2021-04-14 14:54 | P.BASOAP ---
Subjective Progress Note Date: 04/14/21 Principal diagnosis: Morbid obesity Patient returns after laparoscopic lap band removal last week. Doing well at this time. Initially had some discomfort. That has resolved. Tolerating diet. No nausea or vomiting. No heartburn. Objective - Vital Signs Vital signs: Vital Signs Temp 98.4 F 04/14/21 14:13 Pulse 76 04/14/21 14:13 Resp 16 04/14/21 14:13 BP 110/81 04/14/21 14:13 Pulse Ox Intake & Output 04/13/21 04/14/21 04/14/21 18:59 06:59 18:59 Weight 103.419 kg - Exam abdomen: Soft, nondistended, mild tenderness, incisions clean and dry Assessment/Plan (1) Obesity due to excess calories Narrative/Plan: Patient doing well at this time. Continue gradually resume a normal diet and activities. Monitor her incision sites. Follow-up as needed. Plan: Date: 04/14/21 Initial Weight: 101.151 kg Initial BMI: 34.9 Current Weight: 103.419 kg Current BMI: 35.6 Type of Surgery: Total Volume in Band: Previous Volume: Volume Removed: Volume Added: Band Size:
== END ==
LOC: BARWHC3 13:59
PROVIDERS: ATTEND Surgery
DX: E66.01 Morbid (severe) obesity due to excess calories (principal); Z68.35 Body mass index [BMI] 35.0-35.9, adult; Z98.84 Bariatric surgery status; Z87.891 Personal history of nicotine dependence
CPT/HCPCS: 99211

== ENCOUNTER → 2021-06-30 | Outpatient (CLI) | payer BC, MEDICARE ==
--- NOTE | 2021-06-30 16:55 | BD ---
EXAMINATION TYPE: Axial Bone Density DATE OF EXAM: 06/30/2021 COMPARISON: NONE CLINICAL HISTORY: 65 years year old Female. ICD-10 CODE: N95.8 specified menopausal and perimenopau cm dis Height: 5'3 1/2 Weight: 235 FRAX RISK QUESTIONS: Glucocorticoids (More than 3mos): y (Ex: prednisone, prednisolone, methylprednisolone, dexamethasone, and hydrocortisone). History of Fracture in Adulthood: y Secondary Osteoporosis: 3. Menopause before 45: y RISK FACTORS HISTORY OF: History of Wrist Fracture: rt When: unsure Surgery to /Hip(right/left):/Jose Enrique hip replacement When: 2016 Postmenopausal woman: Y Lost more than 2 inches in height since high school: Y MEDICATIONS: Prednisone or other steroids: y How Lon week Additional Medications: cholesterol, anxiety, a fib EXAM MEASUREMENTS: Bone mineral densitometry was performed using the [employer] System. Bone mineral density as measured about the Lumbar spine is: ----- L1-L4(G/cm2): 1.539 T Score Values are as follows: ----- L1: 0.6 ----- L2: 4.8 ----- L3: 3.3 ----- L4: 3.3 ----- L1-L4: 3.0 Bone mineral density about the L Wrist (g/cm2): 0.689 T Score values are as follows: -----Dist. R+U: 0.4 -----Prox. R+U: 0.1 -----Radius total: 0.2 IMPRESSION: Normal (Values between +1 and -1 indicate normal bone mass). Consider repeating this study in 5 year s or sooner if there is some new clinical indication. NOTE: T-SCORE=SD OF THE YOUNG ADULT MEAN.
== END | disposition home or self-care (01) ==
LOC: RADBDWWP 14:38
PROVIDERS: ATTEND Internal Medicine
DX: N95.8 Other specified menopausal and perimenopausal disorders (principal)
CPT/HCPCS: 77080

== ENCOUNTER 2023-12-19 16:13 | Emergency (ER) | payer BC, MEDICARE ==
--- NOTE | 2023-12-19 16:50 | ED ---
General Adult HPI - General Chief complaint: Head Injury Stated complaint: fall-head injury Time Seen by Provider: 12/19/23 16:31 Source: patient, RN notes reviewed, old records reviewed Mode of arrival: ambulatory Limitations: no limitations - History of Present Illness Initial comments: 68-year-old female history of atrial fibrillation on Eliquis presents status post fall. Patient states she tripped and fell striking her right forehead. She states this occurred earlier this morning and she had contacted her sewing machine repairer helper who recommended she present to the emergency department for evaluation. She reports mild headache. No focal numbness or weakness. Overall patient feels well. No other injury. - Related Data Home Medications Medication Instructions Recorded Confirmed ALPRAZolam [Xanax] 0.5 mg PO DAILY PRN 07/04/17 04/15/21 traMADol HCL [Ultram] 50 mg PO DAILY PRN 07/04/17 04/15/21 Calcium Carbonate [Calcium] 1,200 mg PO DAILY 07/19/18 04/15/21 buPROPion XL [Wellbutrin XL] 150 mg PO DAILY 07/19/18 04/15/21 Atorvastatin Calcium [Lipitor] 40 mg PO DAILY 01/16/21 04/15/21 Cholecalciferol [Vitamin D3 (25 25 mcg PO DAILY 01/16/21 04/15/21 Mcg = 1000 Iu)] Krill Oil 500 mg PO DAILY 01/16/21 04/15/21 Previous Rx's Medication Instructions Recorded Metoprolol Tartrate [Lopressor] 25 mg PO BID #30 tab 01/18/21 Pantoprazole [Protonix] 40 mg PO DAILY #30 tab 01/18/21 Apixaban [Eliquis] 5 mg PO BID #30 tab 03/27/21 HYDROcodone/APAP 5-325MG [[place] 1 tab PO Q6HR PRN 3 Days #6 tab 04/06/21 5-325] Allergies Allergy/AdvReac Type Severity Reaction Status Date / Time No Known Allergies Allergy Verified 04/02/21 13:09 Review of Systems ROS Statement: Those systems with pertinent positive or pertinent negative responses have been documented in the HPI. ROS Other: All systems not noted in ROS Statement are negative. Past Medical History Past Medical History: Atrial Fibrillation, Chest Pain / Angina, GERD/Reflux, Osteoarthritis (OA), Pneumonia Additional Past Medical History / Comment(s): Palpatations, occassiobal chest pain with stress History of Any Multi-Drug Resistant Organisms: None Reported Past Surgical History: Bariatric Surgery, Breast Surgery, Joint Replacement, Tonsillectomy Additional Past Surgical History / Comment(s): 2004 - band-fluid filled ,kayley hips replacements, rt knee replaced, L breast benign biopsy, colonoscopy/benign polypectomy.Band Removed 04/03/21 Past Anesthesia/Blood Transfusion Reactions: No Reported Reaction Past Psychological History: Anxiety, Depression Smoking Status: Never smoker Past Alcohol Use History: Occasional Past Drug Use History: None Reported - Past Family History Father Family Medical History: Myocardial Infarction ([place]) Additional Family Medical History / Comment(s): from [place] at age 44 Mother Family Medical History: Cancer Additional Family Medical History / Comment(s): Mother of lung cancer at the age of 70yrs. General Exam Limitations: no limitations General appearance: alert, in no apparent distress Head exam: Present: other (Right forehead hematoma) Eye exam: Present: normal appearance, PERRL, EOMI Neck exam: Present: normal inspection. Absent: tenderness, meningismus Respiratory exam: Present: normal lung sounds bilaterally. Absent: respiratory distress, wheezes, rales Cardiovascular Exam: Present: regular rate, normal rhythm GI/Abdominal exam: Present: soft. Absent: distended, tenderness, guarding Neurological exam: Present: alert, oriented X3, CN II-XII intact. Absent: motor sensory deficit Psychiatric exam: Present: normal affect, normal mood Skin exam: Present: warm Course Vital Signs 12/19/23 16:20 Temperature 98 F Pulse Rate 57 L Respiratory 20 Rate Blood Pressure 153/94 O2 Sat by Pulse 98 Oximetry Medical Decision Making - Medical Decision Making Was pt. sent in by a medical professional or institution (, PA, HEARTH FEEDER, urgent care, hospital, or intermediate...) When possible be specific @ -No Did you speak to anyone other than the patient for history (EMS, parent, family, police, friend...)? What history was obtained from this source @ -No Did you review nursing and triage notes (agree or disagree)? Why? @ -I reviewed and agree with nursing and triage notes Were old charts reviewed (outside hosp., previous admission, EMS record, old EKG, old radiological studies, urgent care reports/EKG's, intermediate records)? Report findings @ -No old charts were reviewed Differential Diagnosis: Intracranial hemorrhage, skull fracture, forehead hematoma, concussion EKG interpreted by me (3pts min.). @ -As above X-rays interpreted by me (1pt min.). @ -None done CT interpreted by me (1pt min.). @CT brain and cervical spine are negative for traumatic injury. U/S interpreted by me (1pt. min.). @ -None done What testing was considered but not performed or refused? (CT, X-rays, U/S, labs)? Why? @ -None What meds were considered but not given or refused? Why? @ -None Did you discuss the management of the patient with other professionals (professionals i.e. , PA, HEARTH FEEDER, lab, RT, psych nurse, certified social workers in health care, solution advisor, teacher, special forces warrant officer, counter caser)? Give summary @ -No Was smoking cessation discussed for >3mins.? @ -No Was critical care preformed (if so, how long)? @ -No Were there social determinants of health that impacted care today? How? (Homelessness, low income, unemployed, alcoholism, drug addiction, transportation, low edu. Level, literacy, decrease access to med. care, snf, rehab)? @ -No Was there de-escalation of care discussed even if they declined (Discuss DNR or withdrawal of care, Hospice)? DNR status @ -No What co-morbidities impacted this encounter? (DM, HTN, Smoking, COPD, CAD, Cancer, CVA, ARF, Chemo, Hep., AIDS, mental health diagnosis, sleep apnea, morbid obesity)? @ -[Atrial fibrillation on Eliquis Was patient admitted / discharged? Hospital course, mention meds given and route, prescriptions, significant lab abnormalities, going to OR and other perti nent info. @ -68-year-old female presenting with mechanical fall, head injury this occurred several hours prior to arrival. She has a hematoma on exam. No laceration. No active bleeding. Nonfocal neurologic exam. Stable vitals. Head CT is negative for intracranial hemorrhage or mass effect. Patient is stable for discharge. Undiagnosed new problem with uncertain prognosis? @ -[No Drug Therapy requiring intensive monitoring for toxicity (Heparin, Nitro, Insulin, Cardizem)? @ -No Were any procedures done? @ -No Diagnosis/symptom? @ -[Fall, forehead hematoma Acute, or Chronic, or Acute on Chronic? @ -acute Uncomplicated (without systemic symptoms) or Complicated (systemic symptoms)? @ -Default Side effects of treatment? @ -No Exacerbation, Progression, or Severe Exacerbation? @ -No Poses a threat to life or bodily function? How? (Chest pain, [place], [place], pneumonia, PE, COPD, DKA, ARF, appy, cholecystitis, CVA, Diverticulitis, Homicidal, Suicidal, threat to staff... and all critical care pts) @ -low risk at this time Disposition Clinical Impression: Hematoma of scalp Disposition: HOME SELF-CARE Condition: Fair Instructions (If sedation given, give patient instructions): Concussion (ED) Is patient prescribed a controlled substance at d/c from ED?: No Referrals: Zay Frances DO [Primary Care Provider] - 1-2 days Time of Disposition: 17:47
--- NOTE | 2023-12-19 17:54 | CT ---
EXAMINATION TYPE: CT brain cspine wo con CT DLP: 1398.6 mGycm, Automated exposure control for dose reduction was used. DATE OF EXAM: 12/19/2023 5:13 PM COMPARISON: None. CLINICAL INDICATION: Female, 68 years old with history of head injury on eliquis; Fall on thinners, h ematoma to right side of forehead TECHNIQUE: Brain: Multiple axial CT images of the brain were obtained without IV contrast. Cspine: Axial CT images from the skull base to the inferior aspect of T2 we obtained without intraven ous contrast. Coronal and sagittal reformatted images were also reviewed. . FINDINGS: Brain: Extra-axial spaces: No abnormal extra-axial fluid collections. Ventricular system: Within normal limits Cerebral parenchyma: No acute intraparenchymal hemorrhage or mass effect. The caputo-white junction is well differentiated. Cerebellum: Unremarkable. Mass effect: No evidence of midline shift. Intracranial vasculature: unremarkable Soft tissues: Soft tissue hematoma over the right frontal scalp no Fracture identified. Calvarium/osseous structures: No depressed skull fracture. Paranasal sinuses and mastoid air cells: Clear. Visualized orbits: Orbital contents are intact. Cervical spine: Fracture: None. Osseous structures: Multilevel degenerative disc disease changes with endplate spurring and disc oste ophyte complex's. Ankylosis of the lateral processes of the right C3 and C4 in the left C2-C4. Vertebral alignment: Grade 1 anterolisthesis of C4 on C5 and T2 on T3 Spinal canal/Neural Foramina: No evidence of significant spinal canal narrowing. No evidence for sign ificant neural foraminal stenosis. Neck soft tissues: Prevertebral soft tissues are within normal limits. Other: The airway is patent. The lung apices are clear. IMPRESSION: 1. No acute intracranial process. 2. Right frontal scalp hematoma. No evidence of fracture. 3. No evidence of cervical spine fracture. 4. Moderate multilevel degenerative disc disease. [facility], , 12/19/2023 5:52 PM
[2023-12-19 18:05] VITALS: BP 148/82; PULSE 56; RESP 18; TEMP 97.9
== END 2023-12-19 18:05 | disposition home or self-care (01) ==
LOC: EC 16:13
DX: S00.03XA Contusion of scalp, initial encounter (principal); I48.91 Unspecified atrial fibrillation; Z79.01 Long term (current) use of anticoagulants; W01.0XXA Fall on same level from slipping, tripping and stumbling without subsequent striking against object, initial encounter
CPT/HCPCS: 70450; 72125; 99283